=== PATIENT | male | born 1970 | race Caucasian/White ===

== ENCOUNTER → 2016-08-18 | Outpatient (CLI) | payer MEDICAID ==
[~2016-08-18] MED LIST: AMOXICILLIN 50500 MG PO; BACTRIM DS 8001 TA1 PO; CIPRO 500MG TA500 MG PO; DARVOCET-N 1001 EACH PO; FLEXERIL10 MG PO; FLONASE 50 MCG16 GM; GABAPENTIN800 MG PO; GLIPIZIDE 5MG TA5 MG PO; KEFLEX 500MG.500 MG PO; LEVOTHYROXINE0.15 M1 PO; LISINOPRIL 10MG10 MG PO; MEDROL 4MG. DOSE4 MG PO; METFOMIN HYDRO850 MG PO; METFORMIN HCL1000 MG PO; NAPROSYN500 M1 PO; NOMEDS *; NORCO 325 MG-51 TAB PO; PRAVACHOL 40MG40 MG PO; STERAPRED DS10 MG PO; ULTRAM 50 MG TA50 MG PO; ULTRAM50 MG PO; VICODIN 5/500 T1 TAB PO; [UNRECOGNIZED DRUG - REMARK]; [UNRECOGNIZED DRUG - REMARK] PO
[2016-08-18 21:16] LABS: BUN 8 mg/dL (7-18)
[2016-08-18 21:20] LABS: GFR (ESTIMATED) 104 ML/MIN (>60)
== END ==
LOC: LAB 17:59
PROVIDERS: Emergency Medicine
DX: E11.9 Type 2 diabetes mellitus without complications (principal); E03.9 Hypothyroidism, unspecified; I10 Essential (primary) hypertension

== ENCOUNTER 2016-11-25 13:00 | Emergency (ER) | payer MEDICAID ==
[~2016-11-25] VITALS: Ht 170.2 cm; Wt 83.9 kg
[~2016-11-25 13:00] MED LIST changes: +HUMULIN 70100 UNITS/ SC; +LOVASTATIN10 MG PO; +SUBOXONE 8 MG-21 FIL SL
[2016-11-25 13:34] VITALS: BP 123/56
--- OUTSIDE RECORDS SUMMARY | 2016-11-25 13:35 | External Medical Summary Rpt ---
Author Author , MAXIMUS STROUD Address Unknown Phone [email or web address] Care Team Providers Care Escrow Representative Name Role Phone [employer] Unavailable Unavailable INC, [employer] ARMS DON, ARMS DON Unavailable Unavailable CELESTIN ALL, CELESTIN ALL Unavailable Unavailable [facility] Unavailable Unavailable [facility], [facility] CASE, CASE Unavailable Unavailable CHAVDA PAUL, CHAVDA Unavailable Unavailable PAUL [facility], Unavailable Unavailable [facility] Unavailable Unavailable LAB, [facility] UPTON TIESHA, UPTON TIESHA Unavailable Unavailable ALESHIA PAT, ALESHIA PAT Unavailable Unavailable ORIANA MELVIN, Unavailable Unavailable ORIANA MELVIN ORIANA MELVIN, Unavailable Unavailable ORIANA MELVIN MARIAH CORONEL PA-C Unavailable Unavailable NEOMARIAH PA-C NEO [facility] Unavailable [place]available [place], [facility] FRYMAN EUG, FRYMAN Unavailable Unavailable EUG [place], [place] Unavailable Unavailable [place] SEJAL, [place] Unavailable Unavailable SEJAL [place] SEJAL, [place] Unavailable Unavailable SEJAL [place], FELICITAS S, Unavailable Unavailable [place], FELICITAS S [facility] Unavailable Unavailable [facility] FAROOQ RHO, FAROOQ Unavailable Unavailable RHO [facility] Unavailable Unavailable INC, [facility] [place] Unavailable Unavailable [facility], [facility], Unavailable Unavailable [facility] EDMONDSON TRA, EDMONDSON TRA Unavailable Unavailable [facility] Unavailable Unavailable GROUP PS, [facility] Unavailable Unavailable [facility], [facility], [facility]available Unavailable [facility] CHAPMAN JACQUELINE, CHAPMAN Unavailable Unavailable JACQUELINE YOEL ANT, YOEL ANT Unavailable Unavailable [facility] Unavailable Unavailable SERVICES, [facility] EFE SANGEETHA, EFE Unavailable Unavailable SANGEETHA [facility] Un[facility] TIESHA UPTON MD Unavailable Unavailable CONSULTING SRV, TIESHA UPTON MD CONSULTING [facility], Unavailable [facility]available [facility], [facility] PETTEY JAM, PETTEY Unavailable Unavailable GRACIE NIXON, HECTOR Unavailable Unavailable TIFFANI Paula, BOBBI Unavailable Unavailable [id number], Unavailable Unavailable [id number] SOKAN BAB, SOKAN BAB Unavailable Unavailable [facility] Unavailable Unavailable EM[facility]Y [facility], [facility] PANDYA BRANDY, PANDYA Unavailable Unavailable BRANDY Purpose Continuity of Care Document - 12-17-2008 through 2016 Problems Code Diagnosis DOS Provider Status [id number] UNS VIRAL 10-27-2016 [facility] HEPATITIS B OLOGY AND WITHOUT HEPATOL HEPATIC COMA K5900 CONSTIPATIO 10-27-2016 [facility] N OLOGY AND UNSPECIFIED HEPATOL R109 UNSPECIFIED 10-27-2016 [facility] ABDOMINAL OLOGY AND PAIN HEPATOL R748 ABNORMAL 10-27-2016 [facility] LEVELS OF OLOGY AND OTHER SERUM HEPATOL ENZYMES R10.9 UNSPECIFIED 10-26-2016 ABDOMINAL PAIN B19.10 UNSPECIFIED 10-20-2016 VIRAL HEPATITIS B WITHOUT HEPATIC COMA Z11.4 ENCOUNTER 10-20-2016 FOR SCREENING FOR HUMAN IMMUNODEFIC IENCY VIRUS [HIV] B179 ACUTE VIRAL 10-03-2016 [facility] UNSPECIFIED INC E119 TYPE 2 10-03-2016 [facility] DIABETES [facility] MELLITUS INC WITHOUT COMPLICATIO NS Z720 TOBACCO USE 10-03-2016 [facility] INC Z794 CHCF 10-03-2016 [facility] CURRENT USE [facility] OF INSULIN INC E039 HYPOTHYROID 08-25-2016 [facility] ISM PHYSICIANS UNSPECIFIED GROUP I10 ESSENTIAL 08-18-2016 [facility] PRIMARY PHYSICIANS HYPERTENSIO GROUP N X70078 PAIN IN 04-06-2016 [facility] RIGHT PHYSICIANS SHOULDER GROUP Q83897 OTHER 03-28-2016 [facility]NOVITIS [facility] AND INC TENOSYNOVIT IS RIGHT SHOULDER N77368 UNS ROT 03-28-2016 [facility], TEAR/RUPT PLLC RT SHLDR NOT SPEC TRAUMAT M545 LOW BACK 10-09-2015 [facility] PAIN PHYSICIANS GROUP [id number] STRAIN 10-09-2015 [facility] MUSCLE & PHYSICIANS TENDON UNS GROUP WALL THORAX INIT ENC J309 ALLERGIC 09-05-2015 [facility] RHINITIS PHYSICIANS UNSPECIFIED GROUP J40 BRONCHITIS 09-05-2015 [facility] NOT PHYSICIANS SPECIFIED GROUP ACUTE OR CHRONIC J329 CHRONIC 07-22-2015 [facility] SINUSITIS PHYSICIANS UNSPECIFIED GROUP R5383 OTHER 07-12-2015 [facility] INC 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 Z9889 OTHER 02-22-2015 [place] SPECIFIED [facility] 32086 OTHER ACUTE 01-30-2015 [facility] POSTOPERATI GROUP PS VE PAIN 48575 OSTEOARTHRO 01-30-2015 [facility] S UNSPEC [facility] WHETHER GEN/LOC SHLDR REGION 40647 UNSPECIFIED 01-30-2015 [facility] ARTHROPATHY SHOULDER REGION 07277 PAIN IN 01-30-2015 [facility] JOINT, [facility] SHOULDER REGION 98878 PARTIAL 01-30-2015 [facility] TEAR OF ANESTHESIA ROTATOR GROUP PS CUFF 7262 OTHER 01-30-2015 [facility] AFFECTIONS [facility] OF SHOULDER REGION NEC 12969 COMPLETE 01-30-2015 [facility] RUPTURE OF [facility] ROTATOR CUFF 4290 UNSPECIFIED 01-22-2015 TIESHA UPTON MD MYOCARDITIS CONSULTING SRV 43195 SHORTNESS 01-18-2015 [facility] [place] OF [facility]ATH [facility] V571 OTHER 01-14-2015 [facility] THERAPY INC 29311 DIAB W/O 12-11-2014 [facility] COMP TYPE PHYSICIANS II/UNS NOT GROUP STATED UNCNTRL 3559 MONONEURITI 12-11-2014 [facility] S OF PHYSICIANS UNSPECIFIED GROUP SITE 4556 UNSPEC 12-11-2014 [facility] HEMORRHOIDS PHYSICIANS WITHOUT GROUP [place]ICATIO N 81486 DISPLCMT 12-11-2014 [facility] LUMBAR PHYSICIANS INTERVERT GROUP DISC W/O MYELOPATHY 7242 LUMBAGO 11-12-2014 [facility] 7231 CERVICALGIA 10-24-2014 [facility] INC 35374 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[facility] OF ORGANIC PHYSICIANS ORIGIN GROUP 7234 BRACHIAL 09-13-2014 [facility] NEURITIS OR PHYSICIANS GROUP RADICULITIS NOS 7244 THORACIC/LEEANNE 09-13-2014 [facility] MBOSACRAL PHYSICIANS NEURITIS/RA GROUP DICULITIS UNSPEC 7840 HEADACHE 09-13-2014 [facility] PHYSICIANS GROUP 4730 CHRONIC 08-23-2014 [facility] MAXILLARY PHYSICIANS SINUSITIS GROUP 4732 CHRONIC 08-23-2014 [facility] ETHMOIDAL PHYSICIANS SINUSITIS GROUP 4779 ALLERGIC 08-23-2014 [facility] RHINITIS PHYSICIANS CAUSE GROUP UNSPECIFIED 2449 UNSPECIFIED 08-17-2014 [facility]YPOTHYRO[facility] ISM 4739 UNSPECIFIED 07-17-2014 [facility] SINUSITIS PHYSICIANS GROUP 2538 OTH 07-11-2014 [facility] DISORDERS & INC SYNDROMES 4731 CHRONIC 07-11-2014 [facility] SINUSITIS IMAGING ASS 31476 OTHER 06-29-2014 [facility] 6823 CELLULITIS 02-18-2014 [facility] OF UPPER PHYS ARM AND FOREARM 2724 OTHER AND 02-09-2014 [facility] UNSPECIFIED PHYSICIANS GROUP HYPERLIPIDE HOWARD 4019 UNSPECIFIED 02-09-2014 [facility]SSENTIAL [facility] HYPERTENSIO INC N 3829 UNSPECIFIED 10-13-2013 [place] SEJAL OTITIS MEDIA 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 [place] LUMBAR/LUMB MELVIN OSACRAL INTERVERTEB RAL DISC 36987 DECREASED 07-20-2013 [facility] LIBIDO PHYSICIANS GROUP 30319 OTHER 07-19-2013 [facility] DISEASES OF MEDICAL LUNG NOT IMAGING ASS ELSEWHERE CLASSIFIED 15991 UNSPECIFIED 12-30-2009 [facility] EPIDIDYMITI S 02924 OT ORCHIT 12-30-2009 [facility] EPIDIDYMIT[facility] EPIDIDYMO-O INC RCHIT W/O ABSC 6089 UNSPECIFIED 12-30-2009 [facility] DISORDER MEDICAL OF MALE IMAGING ASS GENITAL ORGANS 5206 DISTURBANCE 12-19-2008 [facility] S IN TOOTH [facility] ERUPTION INC K75.9 INFLAMMATOR Y LIVER DISEASE, UNSPECIFIED L02.91 CUTANEOUS ABSCESS, UNSPECIFIED M75.81 OTHER SHOULDER LESIONS, RIGHT SHOULDER R17 UNSPECIFIED JAUNDICE R53.1 WEAKNESS Allergies, Adverse Reactions, Alerts Type Drug Allergy Adverse Reaction to Substance Substance Reaction Severity Codeine VOMITING Mild Clinical Alert Notifications Alert Diabetes: no eye exam in the last 365 days Diabetes: no influenza vaccine in the last 365 days Diabetes: no lipid panel in the last 365 days Diabetes: no urine protein screening in the last 365 days Medications Na ND Rx Da Fi Fi Am Da Di Ph RX Ph St me C No te ll ll ou ys ag ar # ys at rm s nt no ma ic us Or Da si cy ia de te s n re d GA 68 06 07 90 30 00 HO Ac BA 00 -2 -2 .0 00 ME ti PE 10 2- 1- 00 06 TO ve NT 00 20 20 08 WN IN 70 17 17 94 3 94 PH 80 AR 0 MA MG CY TA OF BL ET CY NT HI AN A PO 62 06 07 52 30 00 HO Ac LY 17 -2 -1 7. 00 ME ti ET 50 0- 4- 00 06 TO ve HY 44 20 20 0 08 WN LE 23 17 17 93 NE 1 06 PH AR GL MA YC CY OL OF 33 50 CY NT PO HI WD AN A LO 68 06 07 30 30 00 HO Ac VA 00 -2 -1 .[address] 10 1- 4- 00 06 TO ve AT 21 20 20 08 WN IN 30 17 17 53 0 21 PH 10 AR MA MG CY TA OF BL ET CY NT HI AN A LE 00 06 07 30 30 00 HO Ac VO 52 -2 -1 .0 00 ME ti TH 71 1- 4- 00 06 TO ve YR 34 20 20 08 WN OX 50 17 17 57 IN 1 54 PH E AR 10 MA 0 CY MC G OF TA BL CY ET NT HI AN A LI 68 06 06 30 30 00 HO Ac SI 00 -0 -3 .0 00 ME ti NO 10 2- 0- 00 06 TO ve NV 26 20 20 08 WN IL 80 17 17 43 8 92 PH 10 AR MA MG CY TA OF BL ET CY NT HI AN A ME 68 05 06 60 30 00 HO Ac TF 38 -2 -1 .0 00 ME ti OR 20 2- 6- 00 06 TO ve PR 76 20 20 07 WN N 00 17 17 22 HC 5 98 PH L AR 1, MA 00 CY 0 MG OF TA CY BL NT ET HI AN A LO 68 05 06 30 30 00 HO Ac VA 00 -2 -1 .[address] 10 2- 6- 00 06 TO ve AT 21 20 20 08 WN IN 30 17 17 53 0 21 PH 10 AR MA MG CY TA OF BL ET CY NT HI AN A LE 00 05 06 30 30 00 HO Ac VO 52 -2 -1 .0 00 ME ti TH 71 2- 6- 00 06 TO ve YR 34 20 20 08 WN OX 50 17 17 57 IN 1 54 PH E AR 10 MA 0 CY MC G OF TA BL CY ET NT HI AN A GA 68 05 06 90 30 00 HO Ac BA 00 -1 -1 .0 00 ME ti PE 10 9- 6- 00 06 TO ve NT 00 20 20 08 WN IN 70 17 17 72 3 83 PH 80 AR 0 MA MG CY TA OF BL ET CY NT HI AN A EA 08 05 06 10 30 00 HO Ac SY 49 -2 -1 0. 00 ME ti 63 4- 6- 00 06 TO ve TO 15 20 20 0 08 WN UC 60 17 17 76 H 1 89 PH IN AR ARELLANO MA LI CY N SY OF R 0. CY 5 NT ML HI AN A AZ 68 05 06 6. 5 00 HO Ac IT 18 -2 -1 00 00 ME ti HR 00 4- 6- 0 06 TO ve OM 16 20 20 08 WN YC 01 17 17 76 IN 3 83 PH AR 25 MA 0 CY MG OF TA BL CY ET NT HI AN A HU 00 05 06 10 30 00 HO Ac MU 00 -2 -1 .0 00 ME ti LI 28 4- 6- 00 06 TO ve N 71 20 20 08 WN 70 50 17 17 76 -3 1 87 PH 0 AR MA AL CY OF CY NT HI AN A GL 60 05 06 60 30 00 HO Ac IP 50 -0 -0 .0 00 ME ti IZ 50 5- 2- 00 06 TO ve ID 14 20 20 08 WN E 10 17 17 57 5 0 56 PH MG AR MA TA CY BL ET OF CY NT HI AN A TR 00 05 06 30 30 00 HO Ac AD 59 -0 -0 .0 00 ME ti JE 70 5- 2- 00 06 TO ve NT 14 20 20 08 WN A 03 17 17 63 5 0 10 PH MG AR MA TA CY BL ET OF CY NT HI AN A LE 00 05 06 30 30 00 HO Ac VO 52 -0 -0 .0 00 ME ti TH 71 4- 2- 00 06 TO ve YR 34 20 20 08 WN OX 90 17 17 27 IN 1 91 PH E AR 15 MA 0 CY MC G OF TA BL CY ET NT HI AN A LI 68 04 05 30 30 00 HO Ac SI 00 -2 -2 .0 00 ME ti NO 10 8- 6- 00 06 TO ve NV 26 20 20 08 WN IL 80 17 17 43 8 92 PH 10 AR MA MG CY TA OF BL ET CY NT HI AN A LE 00 04 05 30 30 00 HO Ac VO 52 -2 -1 .0 00 ME ti TH 71 5- 9- 00 06 TO ve YR 34 20 20 08 WN OX 50 17 17 57 IN 1 54 PH E AR 10 MA 0 CY MC G OF TA BL CY ET NT HI AN A ME 68 04 05 60 30 00 HO Ac TF 38 -2 -1 .0 00 ME ti OR 20 4- 9- 00 06 TO ve PR 76 20 20 07 WN N 00 17 17 22 HC 5 98 PH L AR 1, MA 00 CY 0 MG OF TA CY BL NT ET HI AN A GA 68 04 05 90 30 00 HO Ac BA 00 -2 -1 .0 00 ME ti PE 10 1- 9- 00 06 TO ve NT 00 20 20 08 WN IN 70 17 17 53 3 73 PH 80 AR 0 MA MG CY TA OF BL ET CY NT HI AN A GL 60 04 05 30 30 00 HO Ac IP 50 -1 -1 .0 00 ME ti IZ 50 8- 2- 00 06 TO ve ID 14 20 20 08 WN E 10 17 17 53 5 0 20 PH MG AR MA TA CY BL ET OF CY NT HI AN A LO 68 04 05 30 30 00 HO Ac VA 00 -1 -1 .[address] 10 8- 2- 00 06 TO ve AT 21 20 20 08 WN IN 30 17 17 53 0 21 PH 10 AR MA MG CY TA OF BL ET CY NT HI AN A FR 99 04 05 50 30 00 HO Ac EE 07 -1 -1 .[address] 30 8- 2- 00 06 TO ve YL 70 20 20 08 WN E 82 17 17 53 LI 2 22 PH TE AR MA TE CY ST OF ST RI CY P NT HI AN A FR 99 04 05 10 30 00 HO Ac EE 07 -1 -1 0. [address] 30 8- 2- 00 06 TO ve YL 13 20 20 0 08 WN E 00 17 17 53 28 1 23 PH G AR LA MA NC CY ET S OF CY NT HI AN A FR 99 04 05 1. 1 00 HO Ac EE 07 -1 -1 [address] 30 8- 2- 0 06 TO ve YL 70 20 20 08 WN E 80 17 17 53 LI 5 24 PH TE AR MA ME CY TE R OF CY NT HI AN A LE 00 04 05 30 30 00 HO Ac VO 52 -0 -0 .0 00 ME ti TH 71 7- 5- 00 06 TO ve YR 34 20 20 08 WN OX 90 17 17 27 IN 1 91 PH E AR 15 MA 0 CY MC G OF TA BL CY ET NT HI AN A GA 68 03 04 90 30 00 HO Ac BA 00 -2 -2 .0 00 ME ti PE 10 4- 8- 00 06 TO ve NT 00 20 20 07 WN IN 70 17 17 86 3 36 PH 80 AR 0 MA MG CY TA OF BL ET CY NT HI AN A LI 68 04 04 30 30 00 HO Ac SI 00 -0 -2 .0 00 ME ti NO 10 3- 8- 00 06 TO ve NV 26 20 20 08 WN IL 80 17 17 43 8 92 PH 10 AR MA MG CY TA OF BL ET CY NT HI AN A LE 03 03 30 30 00 HO Ac VO 52 -0 -3 .0 00 ME ti TH 71 7- 1- 00 06 TO ve YR 34 20 20 08 WN OX 90 17 17 27 IN 1 91 PH E AR 15 MA 0 CY MC G OF TA BL CY ET NT HI AN A ME 68 03 03 60 30 00 HO Ac TF 38 -0 -3 .0 00 ME ti OR 20 7- 1- 06 TO ve PR 76 20 20 07 WN N 00 17 17 22 HC 5 98 PH L AR 1, MA 00 CY 0 MG OF TA CY BL NT ET HI AN A GA 90 30 00 HO Ac BA 00 -2 -2 .0 00 ME ti PE 10 4- 4- 06 TO ve NT 00 20 20 07 WN IN 70 17 17 86 3 36 PH 80 AR 0 MA MG CY TA OF BL ET CY NT HI AN A LI 02 30 30 00 HO Ac SI 18 -2 -2 .0 00 ME ti NO 00 4- 4- 06 TO ve NV 51 20 20 08 WN IL 40 17 17 21 3 35 PH 10 AR MA MG CY TA OF BL ET CY NT HI AN A LI 02 30 30 00 HO Ac SI 18 -2 -2 .0 00 ME ti NO 00 7- 4- 06 TO ve NV 51 20 20 07 WN IL 40 17 17 54 3 53 PH 10 AR MA MG CY TA OF BL ET CY NT HI AN A LE 02 30 30 00 HO Ac VO 52 -2 -2 .0 00 ME ti TH 71 7- 4- 06 TO ve YR 34 20 20 08 WN OX 90 17 17 03 IN 1 52 PH E AR 15 MA 0 CY MC G OF TA BL CY ET NT HI AN A GA 02 90 30 00 HO Ac BA 00 -2 -2 .0 00 ME ti PE 10 7- 4- 06 TO ve NT 00 20 20 07 WN IN 70 17 17 86 3 36 PH 80 AR 0 MA MG CY TA OF BL ET CY NT HI AN A GA 68 12 02 90 30 00 HO Ac BA 00 -3 -0 .0 00 ME ti PE 10 0- 3- 00 06 TO ve NT 00 20 20 07 WN IN 70 16 17 86 3 20 PH 80 AR 0 MA MG CY TA OF BL ET CY NT HI AN A LI 68 12 01 30 30 00 HO Ac SI 18 -1 -2 .0 00 ME ti NO 00 9- 0- 00 06 TO ve NV 51 20 20 07 WN IL 40 16 17 54 3 53 PH 10 AR MA MG CY TA OF BL ET CY NT HI AN A ME 68 12 01 60 30 00 HO Ac TF 38 -1 -2 .0 00 ME ti OR 20 9- 0- 00 06 TO ve PR 76 20 20 07 WN N 00 16 17 22 HC 5 98 PH L AR 1, MA 00 CY 0 MG OF TA CY BL NT ET HI AN A LE 00 12 01 30 30 00 HO Ac VO 52 -1 -2 .0 00 ME ti TH 71 9- 0- 00 06 TO ve YR 34 20 20 07 WN OX 90 16 17 22 IN 1 99 PH E AR 15 MA 0 CY MC G OF TA BL CY ET NT HI AN A HY 00 12 01 [address] 60 -0 -0 .0 00 ME ti OC 33 5- 9- 00 02 TO ve OD 89 20 20 01 WN ON 03 16 17 21 -A 2 94 PH CE AR TA MA PR CY NO PH OF EN CY 5- NT 32 HI 5 AN A LI 60 10 11 00 60 1 EA 14 AR Ac ND 43 -1 -[address] 73 NO ti AN 20 7- 5- 00 SI 57 LD ve E 83 20 20 DE 1% 36 09 09 RI 0 PH CH LO AR AR TI MA D ON CY W OF CY NT HI AN A 00 09 10 00 12 3 EA 14 RU Ac 59 -2 -[address] 42 SH ti 10 5- 8- 00 SI 55 ve 34 20 20 DE NE 90 09 09 IL 1 PH C AR MA CY OF CY NT HI AN A 00 08 08 00 12 3 EA 13 RU Ac 59 -1 -[address] 91 SH ti 10 9- 7- 00 SI 37 ve 34 20 20 DE NE 90 09 09 IL 1 PH C AR MA CY OF CY NT HI AN A LO 00 08 08 00 90 30 RI 79 AR Ac RA 22 -1 -2 .0 TE 54 NO ti ZE 82 3- 7- 00 43 LD ve PA 05 20 20 AI M 95 09 09 D RI 1 0 PH CH MG AR AR M D TA #3 W BL 93 ET 8 Vital Signs 02-27-2013 10:56 Name Value Interpretat Reference Comment ion Range Body 97.6 [degF] Temperature BP 81 mm[Hg] Diastolic BP Systolic 142 mm[Hg] Heart 86 /min Rate/Pulse O2% 95 % Respiratory 20 /min Rate 02-27-2013 09:42 Name Value Interpretat Reference Comment ion Range Body 98.4 [degF] Temperature 02-27-2013 08:58 Name Value Interpretat Reference Comment ion Range BP 67 mm[Hg] Diastolic BP Systolic 108 mm[Hg] Heart 92 /min Rate/Pulse O2% 100 % Respiratory 20 /min Rate Results Labs Lab Lab Date Result Refere Interp Status Commen Order Detail nces retati t Range on Urinalysis dipstick W Reflex Microscopic panel in Urine (10-01-2016 19:55) Bacteri 1+ O complet a 017 ed [Presen 19:55 ce] in Urine sedimen t by Light microsc opy Epithel OCC OCC complet ial 017 ed cells.s 19:55 quamous [Presen ce] in Urine sedimen t by Microsc opy high power field Urinalysis dipstick W Reflex Microscopic panel in Urine (10-01-2016 19:55) Appeara CLEAR CLEAR complet nce of 017 ed Urine 19:55 Bilirub 3+ NEG Abnorma complet in 017 l ed [Presen 19:55 ce] in Urine by Test strip Erythro TRACE-I NEG complet cytes 017 NTACT ed [Presen 19:55 ce] in Urine Color KEIKO YELLOW complet of 017 ed Urine 19:55 Ketones NEGATIV NEG complet 017 E ed [Presen 19:55 ce] in Urine by Automat ed test strip Mucus NEGATIV NEG complet [Presen 017 E ed ce] in 19:55 Urine sedimen t by Light microsc opy Nitrite NEGATIV NEG complet 017 E ed [Presen 19:55 ce] in Urine by Test strip Urobili >=8.0 NEG Abnorma complet nogen 017 l ed [Presen 19:55 ce] in Urine by Test strip Drugs identified in Urine by Screen method (10-01-2016 19:55) Ampheta NEGATIV <1000 complet mine 017 E ed [Presen 19:55 ce] in Urine by Screen method 11-Hydr NEGATIV <50 complet oxy 017 E ed delta-9 19:55 tetrahy drocann abinol [Presen ce] in Unspeci fied specime n Procedures Procedure DOS Code Location Performer Comment HEPATITIS 97083 [facility] ANTIBODY INC INC HAAB BLOOD 75595 [facility] COUNT [facility] COMPLETE INC INC AUTO&AUTO DIFRNTL WBC HEPATITIS 63281 [facility] C [facility] ANTIBODY INC INC HEPATITIS 93198 [facility] B CORE [facility] [place] [address] [facility] HEPATITIS [facility] B INC INC SURFACE ANTIGEN COMPREHEN 36064 [facility] SIVE [facility] METABOLIC INC INC PANEL UNCLASSIF J3490 [facility] IED DRUGS 7 [place] [address] [facility] INFUSION 7 [facility] THERAPY/P INC INC ROPHYLAXI S /DX 1ST TO 1 HR INJECTION J0696 [facility] [place] 7 PHYSICIAN CEFTRIAXO S GROUP NE SODIUM PER 250 MG THERAPEUT 05592 [facility] [place] IC 7 PHYSICIAN PROPHYLAC S GROUP TIC/DX INJECTION SUBQ/IM HEMOGLOBI 78657 [facility] N [facility] GLYCOSYLA INC INC GRACE A1C HEMOGLOBI 09703 [facility] N 7 [facility] [place]YCOS[place] [address] [facility] THYROID 7 [facility] STIMULAT[place] [address] [facility] FREE 7 [facility] THYROXINE INC INC BASIC 93085 [facility] METABOLIC 7 [facility] PANEL INC INC CALCIUM TOTAL DRUG TST G0477 [facility] PRESUMP;C 6 [facility] PBL BEING INC INC READ DC OPT OBV ONLY DRUG TEST G0481 [facility] DEFINITV [address] [facility] [address] [address] [address] ID INC INC METH P DAY 8-14 DRUG CL SHOULDER L3650 [facility] 6 TECHNOLOG TECHNOLOG FIG 8 IES INC IES INC ABDUCT RESTRAINE R PREFAB RADEX 51635 [facility] [place] SHOULDER 6 MEDICAL MELVIN COMPLETE IMAGING MINIMUM 2 ASS VIEWS THERAPEUT 97491 [facility] IC 6 [facility] PROPHYLAC INC INC TIC/DX INJECTION SUBQ/IM THERAPEUT 24438 [facility] LEMUS IC 6 PHYSICIAN STONE PROPHYLAC S GROUP PA-C NEO TIC/DX INJECTION SUBQ/IM INJECTION J0696 [facility] STONE CEFTRIAXO S GROUP PA-C NEO NE SODIUM PER 250 MG [facility]JECTION J1040 [facility] PHYSICIAN STONE METHYLPRE S GROUP PA-C NEO DNISOLONE ACETATE 80 MG INJECTION J1040 [facility] 6 PHYSICIAN SEJAL METHYLPRE S GROUP DNISOLONE ACETATE 80 MG INJECTION J0696 [facility] 6 PHYSICIAN SEJAL CEFTRIAXO S GROUP NE SODIUM PER 250 MG THERAPEUT 37361 [facility] IC 6 PHYSICIAN SEJAL PROPHYLAC S GROUP TIC/DX INJECTION SUBQ/[place] [address] [facility] THYROXINE 6 [facility] TOTAL INC INC CREATINE 39426 [facility] KINASE 6 [facility] [place] [address] [facility] THYROID 6 [facility] STIMULATI INC INC NG HORMONE TSH COLLECTIO 57536 [facility] N VENOUS 6 [facility] BLOOD INC INC VENIPUNCT URE COMPREHEN 86178 [facility] SIVE 6 [facility] METABOLIC INC INC PANEL HEMOGLOBI 58237 [facility] N 6 [facility] GLYCOSYLA INC INC GRACE A1C BLOOD 59406 [facility] COUNT 6 [facility] COMPLETE INC INC AUTO&[place] [address] [facility] TROPONIN 6 [facility] QUANTITAT INC INC EVELIN CREATINE 51334 [facility] KINASE MB 6 [facility] FRACTION INC INC ONLY INJECTION J0696 [facility] [place] 5 PHYSICIAN SEJAL CEFTRIAXO S GROUP NE SODIUM PER 250 MG INJECTION J1040 [facility] [place] 5 PHYSICIAN SEJAL METHYLPRE S GROUP DNISOLONE ACETATE 80 MG THERAPEUT 60853 [facility] IC 5 PHYSICIAN SEJAL PROPHYLAC S GROUP TIC/DX INJECTION SUBQ/IM RADEX 84608 [facility] SHOULDER 5 [facility] MINIMUM 2 VIEWS ARTHROSCO 59408 [place] ARMS DON PY 5 [facility] SHOULDER W/CORACOA CRM LIGMNT RELEASE CLAVICULE 59087 [place] ARMS DON CTOMY 5 [facility] PARTIAL ANES 89997 [place] YOEL ANT ARTHRS 5 ANESTHESI HUMERAL A GROUP H/N PS STRNCLAV & SHOULDER NOS ARTHROSCO 99289 [place] ARMS DON PY 5 [facility] SHOULDER SURG DEBRIDEME NT EXTENSIVE SINGLE 94144 [place] YOEL ANT NERVE 5 ANESTHESI BLOCK A GROUP [place] [address] [facility] PAT SURG 5 [facility] PATHOLOGY GROSS&SEJAL ROSCOPIC EXAM DECALCIFI 36212 [facility] PAT CATION 5 [facility] PROCEDURE ECG 19529 TIESHA UPTON UPTON TIESHA ROUTINE 5 MD ECG CONSULTIN W/LEAST G SRV 12 LDS I&R ONLY RADIOLOGI 52539 [facility] [place] FAR[place] C EXAM 5 RADIOLOGY RHO CHEST 2 VIEWS FRONTAL&L ATERAL OCCUPATIO 75951 TYLER TYLER NAL 5 [facility] THERAPY INC INC EVALUATIO N MRI ANY 93633 BOBOO ALTAMIRANO JT UPPER 5 [facility] W/O CONTRAST MATRL RADEX 01523 [facility] [place] FAR[place] SHOULDER 5 RADIOLOGY RHO COMPLETE MINIMUM 2 VIEWS INJECTION J1885 [facility] [place] 5 PHYSICIAN SEJAL KETOROLAC S GROUP TROMETHAM INE PER 15 MG INJECTION J1100 [facility] [place] 5 PHYSICIAN SEJAL DEXAMETHO S GROUP SONE SODIUM PHOSPHATE 1 MG THERAPEUT 88791 [facility] [place] IC 5 PHYSICIAN SEJAL PROPHYLAC S GROUP TIC/DX INJECTION SUBQ/IM THERAPEUT 19717 [facility] JONATAN IC 5 [facility] TIC/DX INJECTION SUBQ/IM INJECTION J1885 [facility] YMAN 5 [facility] TROMETHAM INE PER 15 MG INJ J0702 [facility] PETTEFidelia BETAMETHA 5 PHYSICIAN GRACIE SONE S GROUP ACETATE & PHOSPHATE 3 MG ARTHROCEN 74766 [facility] PETTEFidelia TESIS 5 PHYSICIAN JAM ASPIR&/IN S GROUP J MAJOR JT/BURSA W/O US RADEX 98119 [place] CELESTIN ALL SHOULDER 5 MEDICAL COMPLETE IMAGING MINIMUM 2 ASS VIEWS COLLECTIO 92424 [facility] SCOTT N VENOUS 5 [facility] [place] [address] [facility] SCOTT THYROID 5 [facility] STIMULATI INC INC NG HORMONE TSH THERAPEUT 80856 [facility] [place] IC 5 PHYSICIAN SEJAL PROPHYLAC S GROUP TIC/DX INJECTION SUBQ/IM INJECTION [id number] [facility] 5 PHYSICIAN SEJAL METHYLPRE S GROUP DNISOLONE ACETATE 80 MG INJECTION [id number] [facility] 5 PHYSICIAN SEJAL CEFTRIAXO S GROUP NE SODIUM PER 250 MG INJECTION A9576 [facility] GADOTERID INC INC OL PROHANCE MULTIPACK PER ML MRI BRAIN 52577 [place] BRAIN 5 MEDICAL MELVIN STEM W/O IMAGING W/CONTRAS ASS T MATERIAL BASIC 89054 [facility] METABOLIC 5 [facility] PANEL INC INC CALCIUM TOTAL CORTISOL 58219 [facility] TOTAL 5 [place] [address] [facility] THYROID 5 [facility] STIMULATI INC INC NG HORMONE TSH COLLECTIO 86246 [facility] N VENOUS 5 [facility] [place] [address] [facility] FREE 5 [facility] [place] [address] [facility] PROLACTIN 5 [facility] INC INC GAMMAGLOB 30540 [facility] ULIN 5 [facility] IMMUNOGLO INC INC BULIN SUBCLASSE S INCISION 61804 [facility] B[facility] & 4 [facility] EMERGENCY ABSCESS PHYS COMPLICAT ED/[place] [address] [facility] CHAVDA TESTOSTER 4 [facility] TOTAL INC BLOOD 09896 [facility] PANDYA COUNT 4 [facility] BRANDY COMPLETE INC AUTO&AUTO DIFRNTL WBC HEMOGLOBI 86630 [facility] N 4 [facility] GLYCOSYLA [place] [address] [facility] THYROID 4 [facility] STIMULATI INC INC NG HORMONE TSH CYANOCOBA 11196 [facility] PANDYA BETSY 4 [facility] BRANDY VITAMIN INC B-12 [place] [address] [facility]ER THYROXINE 4 [facility] TOTAL INC INC COMPREHEN 33825 [facility] SIVE 4 [facility] METABOLIC INC INC PANEL THERAPEUT 54459 [facility] IC 4 PHYSICIAN SEJAL PROPHYLAC S GROUP TIC/DX INJECTION SUBQ/[place] [address] [facility] MAGNESIUM 4 [facility] INC INC HEPATITIS 14727 [facility] B CORE 4 [facility] ANTIBODY INC INC HBCAB TOTAL HEPATITIS 26349 [facility] B SURF 4 [facility] [place] [address] [facility] HEPATITIS 4 [facility] [place] [address] [facility] THYROXINE 4 [facility] [place] [address] [facility] VITAMIN A 4 [facility] INC INC HEPATITIS 08720 [facility] A 4 [facility] ANTIBODY INC INC HAAB COMPREHEN 81217 [facility] SIVE 4 [facility] [place] [address] [facility] THYROID 4 [facility] STIMULATI INC INC NG HORMONE TSH HEMOGLOBI 30806 [facility] N 4 [facility] GLYCOSYLA INC INC GRACE A1C URNLS DIP 48483 [facility] STICK/TAB INC INC LET REAGENT AUTO MICROSCOP Y HEPATITIS 29968 [facility] C 4 [facility] ANTIBODY INC INC BLOOD 29655 [facility] COUNT 4 [facility] COMPLETE INC INC AUTO&AUTO DIFRNTL WBC BLOOD 21495 [facility] COUNT 4 [facility] COMPLETE INC INC AUTO&AUTO DIFRNTL WBC COMPREHEN 59405 [facility] SIVE 4 [facility] METABOLIC INC INC PANEL 3D 88980 [facility]OTT RENDERING 4 [facility] W/INTERP INC INC & POSTPROCE [place]PERVIS[place] ON 3D [address]94 [place] RENDERING 4 MELVIN MELVIN W/INTERP& POSTPROC DIFF WORK STATION THERAPEUT 10541 [facility] IC 4 PHYSICIAN SEJAL PROPHYLAC S GROUP TIC/DX INJECTION SUBQ/IM INJECTION J3420 [facility] [place] VIT B-12 4 PHYSICIAN SEJAL S GROUP CYANOCOBA BETSY TO 1000 MCG RADIOLOGI 79722 [facility] Barney EXAM 4 [facility] CHEST 2 INC INC [place] FR[place] [address] [place] EFE SCROTUM & 0 MEDICAL SANGEETHA CONTENTS IMAGING ASS BASIC 10375 [facility] METABOLIC 0 [facility] PANEL INC INC CALCIUM TOTAL BLOOD 00683 [facility] COUNT 0 [facility] COMPLETE INC INC AUTO&AUTO DIFRNTL WBC URNLS DIP 50238 [facility] STICK/TAB INC [place] [address] [facility] INFUSION 9 [facility] THERAPY/P INC INC ROPHYLAXI S /DX 1ST TO 1 HR LIPID 07908 COMBINED COMBINED PANEL 9 PHYSICIAN PHYSICIAN S LAB S LAB SEDIMENTA 06954 COMBINED COMBINED TION RATE 9 PHYSICIAN PHYSICIAN RBC S LAB S LAB NON-AUTOM ATED THYROID 63624 COMBINED COMBINED HORM 9 PHYSICIAN PHYSICIAN UPTK/THYR S LAB S LAB OID HORMONE BINDING RATIO GENERAL 26914 COMBINED COMBINED HEALTH 9 PHYSICIAN PHYSICIAN PANEL S LAB S LAB Encounters Encounter Start End Date Code Location Performer Type Date OFFICE 28819 GASTRO[facility] OUTPATIEN 7 7 EROLOGY T VISIT AND 25 HEPATOL MINUTES OFFICE 36147 [facility] OUTPATIEN 7 7 PHYSICIAN T VISIT S GROUP 15 MINUTES EMERGENCY 73530 [facility] 7 7 [facility] DEPARTMEN INC T VISIT LOW/MODER SEVERITY [facility] - 7 [facility] OUTPATIEN INC T OFFICE 01586 [facility] OUTPATIEN 7 7 PHYSICIAN T VISIT S GROUP 15 MINUTES OFFICE 82857 [facility] OUTPATIEN 7 7 PHYSICIAN T VISIT S GROUP 15 MINUTES OFFICE 12486 [facility] OUTPATIEN 7 7 PHYSICIAN T VISIT S GROUP 25 MINUTES [facility] 7 7 [facility] OUTPATIEN INC T OFFICE 55887 [facility] OUTPATIEN 7 7 PHYSICIAN T VISIT S GROUP 25 MINUTES [facility] - 7 7 [facility] OUTPATIEN INC T OFFICE 27856 [facility] [place] OUTPATIEN 6 6 PHYSICIAN EUG T VISIT S GROUP 25 MINUTES [facility] - 6 6 [facility]PATI[facility] INC T [facility] - 6 6 [facility] OUTPATIEN INC T EMERGENCY 32163 GAIL YOUNG 6 6 PHYSICIAN TIFFANI VILLANUEVA S, [facility] T VISIT HIGH/URGE NT SEVERITY EMERGENCY 80395 [facility] 6 6 [facility] DEPARTMEN INC T VISIT LOW/MODER SEVERITY OFFICE 17682 [facility] OUTPATIEN 6 6 PHYSICIAN SEJAL T VISIT S GROUP 10 MINUTES OFFICE 15208 [facility] [place] OUTPATIEN 6 6 PHYSICIAN STONE T VISIT S GROUP PA-C NEO 15 MINUTES OFFICE 49965 [facility] OUTPATIEN 6 6 PHYSICIAN SEJAL T VISIT S GROUP 10 MINUTES [facility] - 6 6 [facility] OUTPATI[facility] INC T OFFICE 79288 [facility] OUTPATIEN 6 6 PHYSICIAN SEJAL T VISIT S GROUP 15 MINUTES OFFICE 06758 [facility] OUTPATIEN 5 5 PHYSICIAN SEJAL T VISIT S GROUP 10 MINUTES OFFICE 46381 [facility] OUTPATIEN 5 5 PHYSICIAN SEJAL T VISIT S GROUP 10 MINUTES [facility] [place] [facility] 5 5 [facility] - 5 5 [facility]IEN [facility] [place] [facility] 5 5 [facility] [place] - 5 5 [facility] T OFFICE 32571 [facility] OUTPATIEN 5 5 PHYSICIAN SEJAL T VISIT S GROUP 15 MINUTES OFFICE 87163 [facility] [place] OUTPATIEN 5 5 PHYSICIAN JAM T NEW 30 S GROUP MINUTES [facility]OSP[facility] - 5 5 [facility] OUTPATIEN INC T OFFICE 12782 [facility] OUTPATIEN 5 5 PHYSICIAN SEJAL T VISIT S GROUP 15 MINUTES OFFICE 72319 [facility] OUTPATIEN 5 5 PHYSICIAN SEJAL T VISIT S GROUP 15 MINUTES OFFICE 77283 [facility] OUTPATIEN 5 5 PHYSICIAN SEJAL T VISIT S GROUP 15 MINUTES OFFICE 45170 [facility] [place] OUTPATIEN 5 5 PHYSICIAN JACQUELINE T VISIT S GROUP 15 MINUTES OFFICE 48600 [facility]IN[facility] OUTPATIEN 5 5 MEDICAL L T VISIT SERV 25 FOUNDATIO MINUTES N [facility]OSP[facility] - 5 5 [facility] OUTPATIEN INC T OFFICE 18362 [facility] OUTPATIEN 5 5 PHYSICIAN SEJAL T VISIT S GROUP 15 MINUTES [facility] - 5 5 [facility] OUTPATIEN INC T OFFICE 79648 [place] [facility] CONSULTAT 5 5 MEDICAL L ION SERV NEW/ESTAB FOUNDATIO PATIENT N 80 MIN [facility] - 5 5 [facility] OUTPATIEN INC T EMERGENCY 98625 [facility] [address] [facility] EMERGENCY T VISIT PHYS MODERATE SEVERITY [facility] - 4 4 [facility] OUTPATIEN INC T OFFICE 81618 [facility] OUTPATIEN 4 4 PHYSICIAN SEJAL T VISIT S GROUP 15 MINUTES OFFICE 41463 [facility] OUTPATIEN 4 4 PHYSICIAN SEJAL T VISIT S GROUP 15 MINUTES OFFICE 30519 [facility] OUTPATIEN 4 4 PHYSICIAN SEJAL T VISIT S GROUP 10 MINUTES OFFICE 10592 [facility] CONSULTAT 4 4 ION NEW/ESTAB PATIENT 40 MIN OFFICE 41606 [facility] [place] OUTPATIEN 4 4 PHYSICIAN SEJAL T VISIT S GROUP 15 MINUTES OFFICE 90437 [place] OUT[facility]IEN 4 4 SEJAL SEJAL T VISIT 15 MINUTES OFFICE 55631 [place] OUTPATIEN 4 4 SEJAL SEJAL T VISIT 15 MINUTES OFFICE 26578 [place] OUTPATIEN 4 4 SEJAL SEJAL T VISIT 10 MINUTES [facility] - [facility] 4 [facility] T [facility] 4 4 [facility] T [facility]PAT[facility] INC T OFFICE 44966 [facility] OUTPATIEN 4 4 PHYSICIAN SEJAL T VISIT S GROUP 15 MINUTES [facility] 4 [facility] OUTPATIEN INC T Emergency CAMILA Billingsley (ER) 3 08:45 3 11:03 [facility] EMERGENCY 55687 TEVIN LOVELACE DEPT 0 0 EMERGENCY SEJAL VISIT SERVICES HIGH SEVERITY& THREAT FUNJ EMERGENCY 33749 [facility] 0 0 [facility] DEPARTMEN INC T VISIT HIGH/URGE NT SEVERITY [facility]OSPITAL [facility] - 0 0 [facility] OUTPATIEN INC T EMERGENCY 71775 [facility] 9 9 [facility] DEPARTMEN INC T VISIT LOW/MODER SEVERITY EMERGENCY 14203 TEVIN LOVELACE, 9 [facility] HIGH/URGE ASSOCIATE NT S SEVERITY [facility] - 9 9 [facility] OUTPATIEN INC T
--- OUTSIDE RECORDS SUMMARY | 2016-11-25 13:35 | External Medical Summary Rpt ---
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 Phone [employer] Unavailable Unavailable INC, [employer] ARMS DON, ARMS DON Unavailable Unavailable CELESTIN ALL, CELESTIN ALL Unavailable Unavailable [facility] Unavailable Unavailable [facility], [facility] CASE, CASE Unavailable Unavailable CHAVDA PAUL, CHAVDA Unavailable Unavailable PAUL [facility], Unavailable Unavailable [facility] Unavailable Unavailable LAB, [facility] UPTON TIESHA, UPTON TIESHA Unavailable Unavailable ALESHIA PAT, ALESHIA PAT Unavailable Unavailable ORIANA MELVIN, Unavailable Unavailable ORIANA MELVIN ORIANA MELVIN, Unavailable Unavailable ORIANA MELVIN MARIAH CORONEL PA-C Unavailable Unavailable NEOMARIAH PA-C [facility] Unavailable [place]available [place] FRYMAN EUG, FRYMAN Unavailable Unavailable EUG [place], [place] Unavailable Unavailable [place] SEJAL, [place] Unavailable Unavailable SEJAL [place] SEJAL, [place] Unavailable Unavailable SEJAL [place], FELICITAS S, Unavailable Unavailable [place], FELICITAS S [facility] Unavailable Unavailable [facility], [facility] FAROOQ RHO, FAROOQ Unavailable Unavailable RHO [facility] Unavailable Unavailable INC, [facility] Unavailable Unavailable [facility], Unavailable [facility]available [facility] EDMON[facility]ON TRA, [facility] Unavailable Unavailable [facility] Unavailable Unavailable GROUP PS, [facility] Unavailable [facility]available [facility], [facility], Unavailable [facility]available [facility] Un[facility] CHAPMAN JACQUELINE, CHAPMAN Unavailable Unavailable JACQUELINE YOEL ANT, YOEL ANT Unavailable Unavailable [facility] Unavailable Unavailable SERVICES, [facility] EFE SANGEETHA, EFE Unavailable Unavailable [...] #3938 SOKAN BAB, SOKAN BAB Unavailable Unavailable [facility] Unavailable Unavailable EMERGENCY PHYS, [facility] PANDYA BRANDY, PANDYA Unavailable Unavailable [...] USE 10-03-2016 [facility] Z794 GROUP HOME 10-03-2016 [facility] CURRENT USE [facility] OF INSULIN INC E039 HYPOTHYROID 08-25-2016 [facility] ISM PHYSICIANS UNSPECIFIED GROUP I10 ESSENTIAL 08-18-2016 [facility] PRIMARY PHYSICIANS HYPERTENSIO GROUP N [id number] PAIN IN 04-06-2016 [facility] RIGHT PHYSICIANS SHOULDER GROUP [id number] OTHER 03-28-2016 [facility] SYNOVITIS [facility] TENOSYNOVIT IS RIGHT SHOULDER [id number] UNS ROT 03-28-2016 [facility] PHYS[facility]ANS, TEAR/RUPT PLLC RT SHLDR NOT SPEC TRAUMAT M545 LOW BACK 10-09-2015 [facility] PAIN PHYSICIANS GROUP [id number] STRAIN 10-09-2015 [facility] MUSCLE & PHYSICIANS TENDON UNS GROUP WALL THORAX INIT ENC J309 ALLERGIC 09-05-2015 [facility] RHINITIS PHYSICIANS UNSPECIFIED GROUP J40 BRONCHITIS 09-05-2015 [facility] NOT PHYSICIANS SPECIFIED GROUP ACUTE OR CHRONIC J329 CHRONIC 07-22-2015 [facility] SINUSITIS PHYSICIANS UNSPECIFIED GROUP R5383 OTHER 07-12-2015 [facility] INC 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 Z9889 OTHER 02-22-2015 [place]OK[place]NE HILL SPECIFIED [facility] 82865 OTHER ACUTE 01-30-2015 [facility] POSTOPERATI GROUP PS VE PAIN 05616 OSTEOARTHRO 01-30-2015 [facility] UNSPEC [facility] WHETHER GEN/LOC SHLDR REGION 16545 UNSPECIFIED 01-30-2015 [facility] ARTHROPATHY SHOULDER REGION 55267 PAIN IN 01-30-2015 [facility]INT, [facility] SHOULDER REGION 68719 PARTIAL 01-30-2015 [facility] TE[facility] OF ANESTHESIA ROTATOR GROUP PS CUFF 7262 OTHER 01-30-2015 [facility] AFFECTIONS [facility] OF SHOULDER REGION NEC 10547 COMPLETE 01-30-2015 [facility] RUPTURE OF [facility] ROTATOR CUFF 4290 UNSPECIFIED 01-22-2015 TIESHA UPTON MD MYOCARDITIS CONSULTING SRV 55636 SHORTNESS 01-18-2015 [facility] [place] OF BREATH [facility] V571 OTHER 01-14-2015 [place] THERAPY INC 42013 DIAB W/O 12-11-2014 [facility] COMP TYPE PHYSICIANS II/UNS NOT GROUP STATED UNCNTRL 3559 MONONEURITI 12-11-2014 [facility] S OF PHYSICIANS UNSPECIFIED GROUP SITE 4556 UNSPEC 12-11-2014 [facility] HEMORRHOIDS PHYSICIANS WITHOUT GROUP MENTION COMPLICATIO N 17743 DISPLCMT 12-11-2014 [facility] LUMBAR PHYSICIANS INTERVERT GROUP DISC W/O MYELOPATHY 7242 LUMBAGO 11-12-2014 [facility] 7231 CERVICALGIA 10-24-2014 [facility] 59955 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 7234 BRACHIAL 09-13-2014 [facility] NEURITIS OR PHYSICIANS GROUP RADICULITIS NOS 7244 THORACIC/LEEANNE 09-13-2014 [facility] MBOSACRAL PHYSICIANS NEURITIS/RA GROUP DICULITIS UNSPEC 7840 HEADACHE 09-13-2014 [facility] PHYSICIANS GROUP 4730 CHRONIC 08-23-2014 [facility] MAXILLARY PHYSICIANS SINUSITIS GROUP 4732 CHRONIC 08-23-2014 [facility] ETHMOIDAL PHYSICIANS SINUSITIS GROUP 4779 ALLERGIC 08-23-2014 [facility] RHINITIS PHYSICIANS CAUSE GROUP UNSPECIFIED 2449 UNSPECIFIED 08-17-2014 [facility]YPOT[facility] ISM 4739 UNSPECIFIED 07-17-2014 [facility] SINUSITIS PHYSICIANS GROUP 2538 OTH 07-11-2014 [facility] DISORDERS & INC SYNDROMES 4731 CHRONIC 07-11-2014 [facility]INUSITIS [facility] 33152 OTHER 06-29-2014 [place] [facility] FAT[facility] 6823 CELLULITIS 02-18-2014 [facility] OF UPPER PHYS ARM AND FOREARM 2724 OTHER AND 02-09-2014 [facility] UNSPECIFIED PHYSICIANS GROUP HYPERLIPIDE HOWARD 4019 UNSPECIFIED 02-09-2014 [facility] ESSENTIAL [facility] HYPERTENSIO INC N 3829 UNSPECIFIED 10-13-2013 [place] SEJAL OTITIS MEDIA 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 61069 DECREASED 07-20-2013 [facility] LIBIDO PHYSICIANS GROUP 14689 OTHER 07-19-2013 [facility] DISEASES OF MEDICAL LUNG NOT IMAGING ASS ELSEWHERE CLASSIFIED 00765 UNSPECIFIED 12-30-2009 [facility] EPIDIDYMITI S 46490 OT ORCHIT 12-30-2009 [facility] EPIDIDYMIT& [facility] EPIDIDYMO-O INC RCHIT W/O ABSC 6089 UNSPECIFIED 12-30-2009 [facility] DISORDER MEDICAL OF MALE IMAGING ASS GENITAL [...] 10 2- 0- 00 06 TO ve WY 26 20 20 08 WN IL 80 17 17 43 8 92 PH 10 AR MA MG CY TA OF BL ET CY NT HI AN A ME 68 05 06 60 30 00 HO Ac TF 38 -2 -1 .0 00 ME ti OR 20 2- 6- 00 06 TO ve NC 76 20 20 07 WN N 00 [...] 10 8- 6- 00 06 TO ve WY 26 20 20 08 WN IL 80 [...] 20 4- 9- 00 06 TO ve NC 76 20 20 07 WN N 00 [...] 10 3- 8- 00 06 TO ve WY 26 20 20 08 WN IL 80 [...] OR 20 7- 1- 06 TO ve NC 76 20 20 07 WN N 00 [...] NO 00 4- 4- 06 TO ve WY 51 20 20 08 WN IL 40 17 17 21 3 35 PH 10 AR MA MG CY TA OF BL ET CY NT HI AN A LI 02 30 30 00 HO Ac SI 18 -2 -2 .0 00 ME ti NO 00 7- 4- 06 TO ve WY 51 20 20 07 WN IL 40 [...] 00 9- 0- 00 06 TO ve WY 51 20 20 07 WN IL 40 16 17 54 3 53 PH 10 AR MA MG CY TA OF BL ET CY NT HI AN A ME 68 12 01 60 30 00 HO Ac TF 38 -1 -2 .0 00 ME ti OR 20 9- 0- 00 06 TO ve NC 76 20 20 07 WN N 00 [...] 2 94 PH CE AR TA MA NC CY NO PH OF EN CY 5- [...] Procedure DOS Code Location Performer Comment HEPATITIS 34581 [facility] A [facility] ANTIBODY INC INC HAAB BLOOD 09663 [facility] COUNT 7 [facility] COMPLETE INC INC AUTO&AUTO DIFRNTL WBC HEPATITIS 63452 [facility] C 7 [facility] ANTIBODY INC INC HEPATITIS 25136 [facility] B CORE 7 [facility] [place] [address] [facility] HEPATITIS 7 [facility] B INC INC SURFACE ANTIGEN COMPREHEN 30744 [facility] SIVE 7 [facility] METABOLIC INC INC PANEL UNCLASSIF J3490 [facility] IED DRUGS 7 [place] [address] [facility] INFUSION 7 [facility] H[facility] THERAPY/P INC INC ROPHYLAXI S /DX 1ST TO 1 HR INJECTION J0696 [facility] [place] 7 PHYSICIAN CEFTRIAXO S GROUP NE SODIUM PER 250 MG THERAPEUT 92540 [facility] [place] IC 7 PHYSICIAN PROPHYLAC S GROUP TIC/DX INJECTION SUBQ/IM HEMOGLOBI 35845 [facility] N 7 [facility] GLYCOSYLA INC INC GRACE A1C HEMOGLOBI 15072 [facility] N 7 [facility] GLYCOSYLA [place] [address] T[facility] THYROID 7 [facility] STIMULATI [place] [address] [facility] FREE 7 [facility] THYROXINE INC INC BASIC 81165 [facility] METABOLIC 7 MEM HOS[facility] MEM [...] IES INC ABDUCT RESTRAINE R PREFAB RADEX 14568 [facility] [place] SHOULDER 6 MEDICAL MELVIN COMPLETE IMAGING MINIMUM 2 ASS VIEWS THERAPEUT 29464 [facility] IC 6 [facility] PROPHYLAC INC INC TIC/DX INJECTION SUBQ/IM THERAPEUT 00679 [facility] LEMUS IC 6 PHYSICIAN STONE PROPHYLAC S GROUP PA-C NEO TIC/DX INJECTION SUBQ/IM INJECTION J0696 [facility] STONE CEFTRIAXO S GROUP PA-C NEO NE SODIUM PER 250 MG INJECTION J1040 [facility] 6 PHYSICIAN STONE METHYLPRE S GROUP PA-C NEO DNISOLONE ACETATE 80 MG INJECTION J1040 [facility] 6 PHYSICIAN SEJAL METHYLPRE S GROUP DNISOLONE ACETATE 80 MG INJECTION J0696 [facility] 6 PHYSICIAN SEJAL CEFTRIAXO S GROUP NE SODIUM PER 250 MG THERAPEUT 68124 [facility] IC 6 PHYSICIAN SEJAL PROPHYLAC S GROUP TIC/DX INJECTION SUBQ/[place] [address] [facility] THYROXINE 6 [facility] TOTAL INC INC CREATINE 78776 [facility] KINASE 6 [facility] [place] [address] T[facility] THYROID 6 [facility] STIMULATI INC INC NG HORMONE TSH COLLECTIO 29981 [facility] N VENOUS 6 [facility] BLOOD INC INC VENIPUNCT URE COMPREHEN 72588 [facility] SIVE 6 [facility] METABOLIC INC INC PANEL HEMOGLOBI 08254 [facility] N 6 [facility] GLYCOSYLA INC INC GRACE A1C BLOOD 74869 [facility] COUNT 6 [facility] COMPLETE INC INC AUTO&[place] [address] [facility] TROPONIN 6 [facility] QUANTITAT INC INC EVELIN CREATINE 61019 [facility] KINASE MB 6 [facility] FRACTION INC INC ONLY INJECTION J0696 [facility] [place] 5 PHYSICIAN SEJAL CEFTRIAXO S GROUP NE SODIUM PER 250 MG INJECTION J1040 [facility] [place] 5 PHYSICIAN SEJAL METHYLPRE S GROUP DNISOLONE ACETATE 80 MG THERAPEUT 15577 [facility] IC 5 PHYSICIAN SEJAL PROPHYLAC S GROUP TIC/DX INJECTION SUBQ/IM RADEX 62213 [facility] SHOULDER 5 [facility] MINIMUM 2 VIEWS ARTHROSCO 77144 [facility] ARMS [facility] PY 5 [facility] SHOULDER W/CORACOA CRM LIGMNT RELEASE CLAVICULE 33893 [facility] CTOMY 5 [facility] PARTIAL ANES 39440 [facility] YOEL ANT ARTHRS 5 ANESTHESI HUMERAL A GROUP H/N PS STRNCLAV & SHOULDER NOS ARTHROSCO 33699 [facility] ARMS [facility] PY [facility] SHOULDER SURG DEBRIDEME NT EXTENSIVE SINGLE 13672 [facility] ANT NERVE 5 ANESTHESI BLOCK [place] [address] [facility] ALESHIA PAT SURG 5 [facility] PATHOLOGY GROSS&SEJAL ROSCOPIC EXAM DECALCIFI 18177 [facility] ALESHIA PAT CATION 5 [facility] PROCEDURE ECG 80198 TIESHA UPTON UPTON TIESHA ROUTINE 5 MD ECG CONSULTIN W/LEAST G SRV 12 LDS I&R ONLY RADIOLOGI 77167 [facility] [place] FAROOQ C EXAM 5 RADIOLOGY RHO CHEST 2 VIEWS FRONTAL&L ATERAL OCCUPATIO 50186 [facility] NAL 5 [facility] THERAPY INC INC EVALUATIO N MRI ANY 39269 BOBOO ALTAMIRANO JT UPPER 5 [facility] W/O CONTRAST MATRL RADEX 81225 [facility] [place] [facility] SHOULDER 5 RADIOLOGY RHO COMPLETE MINIMUM 2 VIEWS INJECTION J1885 [facility] [place] 5 PHYSICIAN SEJAL KETOROLAC S GROUP TROMETHAM INE PER 15 MG INJECTION J1100 [facility] [place] 5 PHYSICIAN SEJAL DEXAMETHO S GROUP SONE SODIUM PHOSPHATE 1 MG THERAPEUT 36418 [facility] [place] IC 5 PHYSICIAN SEJAL PROPHYLAC S GROUP TIC/DX INJECTION SUBQ/IM THERAPEUT 34625 [facility] JONATAN IC 5 [facility] TIC/DX INJECTION SUBQ/IM INJECTION J1885 [facility] YMAN 5 [facility] TROMETHAM INE PER 15 MG INJ J0702 [facility] PETTEFidelia BETAMETHA 5 PHYSICIAN GRACIE SONE S GROUP ACETATE & PHOSPHATE 3 MG ARTHROCEN 01876 [facility] PETTEFidelia TESIS 5 PHYSICIAN JAM ASPIR&/IN S GROUP J MAJOR JT/BURSA W/O US RADEX 71241 [facility] CELESTIN ALL SHOULDER 5 MEDICAL COMPLETE IMAGING MINIMUM 2 ASS VIEWS COLLECTIO 00289 [facility] N VENOUS 5 [facility] [place] [address] [facility] THYROID 5 [facility] STIMULATI INC INC NG HORMONE TSH THERAPEUT 16388 [facility] [place] IC 5 PHYSICIAN SEJAL PROPHYLAC S GROUP TIC/DX INJECTION SUBQ/IM INJECTION J1040 [facility] 5 PHYSICIAN SEJAL METHYLPRE S GROUP DNISOLONE ACETATE 80 MG INJECTION J0696 [facility] [place] 5 PHYSICIAN SEJAL CEFTRIAXO S GROUP NE SODIUM PER 250 MG INJECTION A9576 [facility]OTT 5 [facility] GADOTERID INC INC OL PROHANCE MULTIPACK PER ML MRI BRAIN 74488 [facility] BRAIN 5 MEDICAL MELVIN STEM W/O IMAGING W/CONTRAS ASS T MATERIAL BASIC 70862 [facility] METABOLIC 5 [facility] PANEL INC INC CALCIUM TOTAL CORTISOL 62193 [facility] TOTAL 5 [place] [address] T[facility] THYROID 5 [facility] STIMULATI INC INC NG HORMONE TSH COLLECTIO 56948 [facility] N VENOUS 5 [facility] [place] [address] [facility] FREE 5 [facility] [place] [address] [facility] PROLACTIN 5 [facility] INC INC GAMMAGLOB 53036 [facility] ULIN 5 [facility] IMMUNOGLO INC INC BULIN SUBCLASSE S INCISION 56934 [facility] SOKAN BAB & 4 DAMIAN DRAINAGE EMERGENCY ABSCESS PHYS COMPLICAT ED/[place] [address] [facility] CHAVDA TESTOSTER 4 [facility] TOTAL INC BLOOD 33499 [facility] PANDYA COUNT 4 [facility] BRANDY COMPLETE INC AUTO&AUTO DIFRNTL WBC HEMOGLOBI 81112 [facility] N 4 [facility] H[facility] GLYCOSYLA [place] [address] T[facility] THYROID 4 [facility] STIMULATI INC INC NG HORMONE TSH CYANOCOBA 63147 [facility] PANDYA BETSY 4 [facility] BRANDY VITAMIN INC B-12 [place] [address] [facility] THYROXINE 4 [facility] TOTAL INC INC COMPREHEN 04771 T[facility] SIVE 4 [facility] METABOLIC INC INC PANEL THERAPEUT 78663 [facility] [place] IC 4 PHYSICIAN SEJAL PROPHYLAC S GROUP TIC/DX INJECTION SUBQ/[place] [address] [facility] MAGNESIUM 4 [facility] INC INC HEPATITIS 19766 [facility] B CORE 4 [facility] ANTIBODY INC INC HBCAB TOTAL HEPATITIS 86170 T[facility] B SURF 4 [facility] [address] [facility] HEPATITIS 4 [facility] [place] [address] [facility] THYROXINE 4 [facility] [place] [address] [facility] VITAMIN A 4 [facility] INC INC HEPATITIS 69085 [facility] A 4 [facility] ANTIBODY INC INC HAAB COMPREHEN 45056 [facility] SIVE 4 [facility] [address] T[facility] THYROID 4 [facility] STIMULATI INC INC NG HORMONE TSH HEMOGLOBI 28784 [facility] N 4 [facility] GLYCOSYLA INC INC GRACE A1C URNLS DIP 83272 [facility]OTT 4 [facility] STICK/TAB INC INC LET REAGENT AUTO MICROSCOP Y HEPATITIS 47234 [facility] C 4 [facility] ANTIBODY INC INC BLOOD 62338 [facility] COUNT 4 [facility] COMPLETE INC INC AUTO&AUTO DIFRNTL WBC BLOOD 18806 [facility] COUNT 4 [facility] COMPLETE INC INC AUTO&AUTO DIFRNTL WBC COMPREHEN 75313 [facility] SIVE 4 [facility] METABOLIC INC INC PANEL 3D 36453 [facility] RENDERING 4 [facility] W/INTERP INC INC & POSTPROCE [place]PER[place] ON 3D 46382 [place] RENDERING 4 MELVIN MELVIN W/INTERP& POSTPROC DIFF WORK STATION THERAPEUT 38744 [facility] [place] IC 4 PHYSICIAN SEJAL PROPHYLAC S GROUP TIC/DX INJECTION SUBQ/IM INJECTION J3420 [facility] [place] VIT B-12 4 PHYSICIAN SEJAL S GROUP CYANOCOBA BETSY TO 1000 MCG RADIOLOGI 42072 [facility] Barney EXAM 4 [facility] CHEST 2 INC INC VIEWS FRONTAL&[place] [address] [place] EFE SCROTUM & 0 MEDICAL SANGEETHA CONTENTS IMAGING ASS BASIC 47762 [facility] METABOLIC 0 [facility] PANEL INC INC CALCIUM TOTAL BLOOD 27044 [facility] COUNT 0 [facility] COMPLETE INC INC AUTO&AUTO DIFRNTL WBC URNLS DIP 57584 [facility] 0 [facility] STICK/TAB INC [place] [address] [facility] INFUSION 9 [facility] THERAPY/P INC INC ROPHYLAXI S /DX 1ST TO 1 HR LIPID 09103 COMBINED COMBINED PANEL 9 PHYSICIAN PHYSICIAN S LAB S LAB SEDIMENTA 54394 COMBINED COMBINED TION RATE 9 PHYSICIAN PHYSICIAN RBC S LAB S LAB NON-AUTOM ATED THYROID 75635 COMBINED COMBINED HORM 9 PHYSICIAN PHYSICIAN UPTK/THYR S LAB S LAB OID HORMONE BINDING RATIO GENERAL 19831 COMBINED COMBINED HEALTH 9 PHYSICIAN PHYSICIAN PANEL S LAB S LAB Encounters Encounter Start End Date Code Location Performer Type Date OFFICE 24038 GASTROENT CASE OUTPATIEN 7 7 EROLOGY T VISIT AND 25 HEPATOL MINUTES OFFICE 47719 [facility] [place] OUTPATIEN 7 7 PHYSICIAN T VISIT S GROUP 15 MINUTES EMERGENCY 20870 [facility] 7 7 [facility] DEPARTMEN INC T VISIT LOW/MODER SEVERITY [facility]OSPITAL [facility] - 7 7 [facility] OUTPATIEN INC T OFFICE 94863 [facility] [place] OUTPATIEN 7 7 PHYSICIAN T VISIT S GROUP 15 MINUTES OFFICE 53300 [facility] [place] OUTPATIEN 7 7 PHYSICIAN T VISIT S GROUP 15 MINUTES OFFICE 20836 [facility] [place] OUTPATIEN 7 7 PHYSICIAN T VISIT S GROUP 25 MINUTES HOSPITAL [facility] - 7 7 [facility] OUTPATIEN INC T OFFICE 74486 [facility] [place] OUTPATIEN 7 7 PHYSICIAN T VISIT S GROUP 25 MINUTES HOSPITAL [facility] - 7 7 [facility] OUTPATIEN INC T OFFICE 21335 [facility] FRYMAN OUTPATIEN 6 6 PHYSICIAN EUG T VISIT S GROUP 25 MINUTES HOSPITAL [facility] - 6 6 [facility] OUTPATIEN INC T [facility]OSPITAL [facility] - 6 6 [facility] OUTPATIEN INC T EMERGENCY 51525 GAIL YOUNG 6 6 PHYSICIAN TIFFANI VILLANUEVA S, [facility] T VISIT HIGH/URGE NT SEVERITY EMERGENCY 29578 [facility] 6 6 [facility] DEPARTMEN INC T VISIT LOW/MODER SEVERITY OFFICE 67344 [facility] [place] OUTPATIEN 6 6 PHYSICIAN SEJAL T VISIT S GROUP 10 MINUTES OFFICE 60653 [facility] LEMUS OUTPATIEN 6 6 PHYSICIAN STONE T VISIT S GROUP PA-C NEO 15 MINUTES OFFICE 64157 [facility] [place] OUTPATIEN 6 6 PHYSICIAN SEJAL T VISIT S GROUP 10 MINUTES HOSPITAL [facility] - 6 6 [facility] OUTPATIEN INC T OFFICE 91372 [facility] [place] OUTPATIEN 6 6 PHYSICIAN SEJAL T VISIT S GROUP 15 MINUTES OFFICE 40322 [facility] [place] OUTPATIEN 5 5 PHYSICIAN SEJAL T VISIT S GROUP 10 MINUTES OFFICE 09833 [facility] [place] [facility] 5 5 PHYSICIAN SEJAL T [facility]ISIT S GROUP 10 MINUTES [facility] 5 5 [facility] 5 5 [facility] - 5 5 [facility] T OFFICE [id number] [facility] [place] [facility] 5 5 PHYSICIAN SEJAL T VISIT S GROUP 15 MINUTES OFFICE [id number] [facility] OUTPATIEN 5 5 PHYSICIAN JAM T NEW 30 S GROUP MINUTES [facility] T OFFICE [id number] [facility] [place] [facility] 5 5 PHYSICIAN SEJAL T VISIT S GROUP 15 MINUTES OFFICE 03782 [facility] [place] [facility] 5 5 PHYSICIAN SEJAL T VISIT S GROUP 15 MINUTES OFFICE [id number] [facility] [place] OUTPAT[facility] 5 5 PHYSICIAN SEJAL T VISIT S GROUP 15 MINUTES OFFICE 38415 [facility] CHAPMAN OUTPATIEN 5 5 PHYSICIAN JACQUELINE T VISIT S GROUP 15 MINUTES OFFICE 18403 [facility] OUTPATIEN 5 5 MEDICAL L T VISIT SERV 25 FOUNDATIO MINUTES N [facility] OFFICE 44715 [facility] [place] [facility]PAT[facility] 5 5 PHYSICIAN SEJAL T VISIT S GROUP 15 MINUTES [facility] 56823 [place] [facility] CONS[facility]AT 5 5 MEDICAL L ION SERV NEW/ESTAB FOUNDATIO PATIENT N 80 MIN [facility] T EMERGENCY [id number] [facility] 4 4 [facility] EMERGENC[facility] T VISIT PHYS MODERATE [facility]VERITY [facility] OFFICE 96468 [facility] [place] [facility] 4 4 PHYSICIAN SEJAL T VISIT S GROUP 15 MINUTES OFFICE [id number] [facility] [place] [facility] 4 4 PHYSICIAN SEJAL T VISIT S GROUP 15 MINUTES OFFICE 19086 [facility] [place] [facility] 4 4 PHYSICIAN SEJAL T VISIT S GROUP 10 MINUTES OFFICE 66445 [facility] CONS[facility] 4 4 ION NEW/ESTAB PATIENT 40 MIN OFFICE 05834 [facility] [place] OUT[facility] 4 4 PHYSICIAN SEJAL T VISIT S GROUP 15 MINUTES OFFICE [id number] [facility] [place] [facility] 4 4 SEJAL SEJAL T VISIT 15 MINUTES OFFICE 82140 [place] [facility] 4 4 SEJAL SEJAL T VISIT 15 MINUTES OFFICE [id number] [place] [facility] 4 4 SEJAL SEJAL T VISIT 10 MINUTES [facility] [id number] [facility] OUTPATIEN 4 4 PHYSICIAN SEJAL T VISIT S GROUP 15 MINUTES [facility] - 4 4 [facility] T Emergency CAMILA Billingsley (ER) 3 08:45 3 11:03 [facility] EMERGENCY 11022 TEVIN LOVELACE DEPT 0 0 EMERGENCY SEJAL VISIT SERVICES HIGH SEVERITY& THREAT FUNJ EMERGENCY [id number] [place] 0 0 [facility] DEPARTMEN INC T VISIT HIGH/URGE NT SEVERITY [facility]OS[facility] - 0 0 [facility] OUTPATIEN INC T EMERGENCY [id number] [facility] 9 9 [facility]PART[facility] T VISIT LOW/MODER SEVERITY EMERGENCY 09340 TEVIN LOVELACE, 9 9 [facility] HIGH/URGE ASSOCIATE NT S SEVERITY [facility] - 9 9 [facility] T
[2016-11-25] MEDS ORDERED: ZITHROMAX Z PA250 MG PO (13:36)
--- NOTE | 2016-11-25 13:38 | Urgent Treatment Center Report ---
History of Present Issue Date/Time Seen by Provider 11/25/16 1326 Visit Reason Pt arrived:Walked Presenting Problem:[place] AND WOKE UP WEDNESDAY FEELING ILL STATES HE IS NAUSEATED AND HAS CHILLS AND VERY SLEEPY. AFEBRILE AT PRESENTATION. STATES HE THINKS HE HAS A FLU-TYPE BUG Location if Accident: Onset of symptoms date/time:11/22/16 or onset unknown for: Have you (or family members/close friends) recently traveled outside the [place]? N If Yes, where/when: Have you had exposure to infectious disease within the past month? TB? Other? Specify: c/o generalized malaise since Wednesday. Isn't sure if it is related to him [place] the local [place] the day before or not. "I didn't even go under water or anything". Rhinorrhea, nasal congestion, PND, fatigue, cough, brown sputum. Denies known fevers but + chills. "I think I have the flu. I really do." + tobacco abuse. Denies SOA, wheezing. Hasn't taken or tried anything for symptoms. "I just know I need an antibiotic even though today is a better day then yesterday". Source patient Exam Limitations no limitations ALLERGIES Coded Allergies: codeine (NA-NAUSEA 10/01/16) Home Medications Reported Medications LISINOPRIL (Lisinopril) 10 MG PO DAILY Levothyroxine Sodium 0.15 MG PO DAILY #30 Gabapentin (Gabapentin 800MG) 800 MG PO Q8 #90 BUPRENORPHINE HCL/NALOXONE HCL (Suboxone 8 MG-2 MG Sl Film) 1 SL BID #28 INSUL REG 30%ISOPHAN 70% HUMAN (Humulin 70-30 Vial) 14 UNITS SC BID #10 Lovastatin 10 MG PO DAILY #30 History Medical History General CAD? No Angina: No LA: No Hypertension? Yes Hyperlipidemia? Yes CHF? No DVT? No PE? No COPD? No Asthma? No Anemia? No GERD? No Gastric ulcers? No GI Bleed? No Hernia? No Thyroid Problems? No Hypothyroidism? No CVA? No Seizures? Yes Diabetes? Yes Insulin Dependent: Yes Insulin Pump: No Home FSBS? Yes Renal Insuffiency? No UTI? No Stones? No BPH? No GB Disease: No Nephritic Syndrome? No Asplenia? No Hepatitis? No Sickle Cell Disease? No Arthritis? No Migraines? No Cataracts? No Glaucoma? No MRSA? No HIV? No TB? No Anxiety? No Depression? No Cancer? No More? Yes Additional hx: FORMER DRUG AND ALCOHOL USE Immunization HX DT/Tetanus > 10 YRS Surgical Hx Previous Surgery?Y L SHOULDER ROTATOR CUFF Family History Family HX Diabetes No CAD No Hypertension No Hyperlipidemia No Cancer Yes TB No Social History Smoking Hx Smoker: Current Every Day Smoker Tobacco: Yes Type Cigarettes Packs/day < 1 Pack Alcohol Alcohol: No Review of Systems All Other Systems Reviewed and Negative Constitutional see HPI, denies diaphoresis, denies weakness Eyes denies drainage ENT see HPI. denies: ear pain, throat pain. Respiratory see HPI Cardiovascular denies chest pain, denies palpitations Gastrointestinal denies no symptoms reported Musculoskeletal see HPI Skin denies rash Psychiatric/Neurological denies headache Physical Exam Vital Signs Vital Signs Date Time Temp Pulse Resp B/P Pulse O2 O2 Flow FiO2 Ox Delivery Rate 11/25 1334 98.7 82 18 123/56 97 11/25 1306 98.7 82 18 123/56 97 11/25 1304 98.7 82 18 123/56 97 General Appearance normal appearance, no apparent distress Eye Exam - bilateral eye normal exam Ear, Nose, Throat normal ENT inspection Neck non-tender Respiratory Status Yes: trachea midline, chest symmetrical, non tender chest, non productive cough. No: respiratory distress, use of accessory muscles, productive cough. Lung Sounds anterior: lungs clear. posterior: lungs clear. bilateral: lungs clear. Cardiovascular regular rate/rhythm, no peripheral edema, no murmur Neurologic alert, oriented x 3 Mental status normal mood/affect Skin normal color, warm/dry Lymphatic no adenopathy Medical Decision Making LABS/Meds/Orders Pt receiving controlled substance in ED? No Results/Orders Laboratory Tests 11/25/16 1326: Influenza Type A Ag NOT DETECTED, Influenza Type B Ag NOT DETECTED Orders Procedure Date/[facility] 1326 Complete Departure Departure Time of Disposition 1333 Disposition DC Home or Self Care(routine) Clinical Impression Primary Impression: Bronchitis Secondary Impressions: Tobacco abuse Condition STABLE Referrals Son FARRELL,Jake Duggan (Family) Follow up IMMEDIATELY for new or worsening symptoms OR no noticeable improvement over the next 48-72 hours. 911 for difficulty breathing. Patient Instructions DI for Acute Bronchitis, How to Quit Tobacco Products Additional Instructions * STOP smoking * No sign of bacterial infection. Likely viral and that is why you are feeling some better. I understand you rather have an antibiotic and given your cough, sputum and tobacco hx, I will order azithromycin * start antibiotic today. Be sure to complete entire prescription even if feeling better. * Encourage fluids, water, gatorade, powerade, pedialyte if /toddler/child * warm salt water gargles * warm fluids * sore throat lozenges * sleep elevated * humidifier/vaporizer Follow up IMMEDIATELY for new or worsening symptoms OR no noticeable improvement over the next 48-72 hours. 911 for difficulty breathing. Discharge Counseling Counseled pt/family regarding diagnosis, test results, medications/RX, home care, follow up needs Prescriptions Current Visit Scripts Azithromycin (Zithromycin (Z-DIANNA) 250MG Tab) 250 MG PO DAILY #6 TAB TAKE TWO (2) TABLETS ON DAY 1, THEN ONE (1) TABLET DAY #2 THRU #5 at [id number]
--- OUTSIDE RECORDS SUMMARY | 2016-11-25 13:39 | External Medical Summary Rpt ---
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 Name Role Phone [employer] Unavailable Unavailable INC, [employer] ARMS DON, ARMS DON Unavailable Unavailable CELESTIN ALL, CELE[facility]IN ALL Unavailable Unavailable [facility] Unavailable Unavailable [facility], [facility] CASE, CASE Unavailable Unavailable CHAVDA PAUL, CHAVDA Unavailable Unavailable PAUL [facility], Unavailable Unavailable [facility] Unavailable Unavailable LAB, [facility] [place] TIESHA, WON MOTLEY Unavailable Unavailable ALESHIA PAT, ALESHIA PAT Unavailable Unavailable ORIANA MELVIN, Unavailable Unavailable ORIANA MELVIN ORIANA MELVIN, Unavailable Unavailable [facility] MELVIN MARIAH CORONEL PA-C Unavailable Unavailable NEOMARIAH PA-C NEO [facility] Unavailable [place]available [place], [facility] FRYMAN EUG, FRYMAN Unavailable Unavailable EUG [place], [place] Unavailable Unavailable [place] SEJAL, [place] Unavailable Unavailable SEJAL [place] SEJAL, [place] Unavailable Unavailable SEJAL [place], FELICITAS S, Unavailable Unavailable FELICITAS LOVELACE S [facility] AND Unavailable Unavailable [facility], [facility] FAROOQ RHO, FAROQO Unavailable Unavailable RHO [facility] Unavailable Unavailable INC, [facility] Unavailable Unavailable [facility], [facility], Unavailable Unavailable [facility] EDMONDSON TRA, EDMONDSON TRA Unavailable Unavailable [facility] Unavailable Unavailable GROUP PS, [facility] Unavailable Unavailable [facility], [facility], Unavailable Unavailable [facility] [employer] [facility], Unavailable Unavailable [facility] CHAPMAN JACQUELINE, CHAPMAN Unavailable Unavailable JACQUELINE YOEL ANT, YOEL ANT Unavailable Unavailable [facility] Unavailable Unavailable SERVICES, [facility] EFE VIVAS, EFE Unavailable Unavailable [facility] TIESHA UPTON MD Unavailable Unavailable CONSULTING SRVTIESHA MD CONSULTING SRV [facility], Unavailable [facility]available PLL[facility], [facility] PETTEY JAM, PETTEY Unavailable Unavailable JAM RENUSCH TIFFANI, RENUSCH Unavailable Unavailable TIFFANI Paula, BOBBI Unavailable Unavailable L [id number], Unavailable Unavailable [id number] SOKAN BAB, SOKAN BAB Unavailable Unavailable [facility] Unavailable Unavailable EMER[facility]ENCY PH[facility], [facility] PANDYA BRANDY, PANDYA Unavailable Unavailable [...] OF OLOGY AND OTHER SERUM HEPATOL ENZYMES B179 ACUTE VIRAL 10-03-2016 [facility] UNSPECIFIED INC E119 TYPE 2 10-03-2016 [facility] DIABETES [facility] MELLITUS INC WITHOUT COMPLICATIO NS Z720 TOBACCO USE 10-03-2016 [facility] INC Z794 CARE HOME 10-03-2016 [facility] CURRENT USE [facility] OF INSULIN INC E039 HYPOTHYROID 08-25-2016 [facility] ISM PHYSICIANS UNSPECIFIED GROUP I10 ESSENTIAL 08-18-2016 [facility] PRIMARY PHYSICIANS HYPERTENSIO GROUP N [id number] PAIN IN 04-06-2016 [facility] RIGHT PHYSICIANS SHOULDER GROUP [id number] OTHER 03-28-2016 [facility] SYNOVITIS [facility] AND INC TENOSYNOVIT IS RIGHT SHOULDER [id number] UNS ROT 03-28-2016 [facility], TEAR/RUPT PLLC RT SHLDR NOT SPEC TRAUMAT M545 LOW BACK 10-09-2015 [facility] PAIN PHYSICIANS GROUP [id number] STRAIN 10-09-2015 [facility] MUSCLE & PHYSICIANS TENDON UNS GROUP WALL THORAX INIT ENC J309 ALLERGIC 09-05-2015 [facility] RHINITIS PHYSICIANS UNSPECIFIED GROUP J40 BRONCHITIS 09-05-2015 [facility] NOT PHYSICIANS SPECIFIED GROUP ACUTE OR CHRONIC J329 CHRONIC 07-22-2015 [facility] SINUSITIS PHYSICIANS UNSPECIFIED GROUP R5383 OTHER 07-12-2015 [facility] FATIGUE [facility] INC 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 Z9889 OTHER 02-22-2015 [place] 6451918 OTHER ACUTE 01-30-2015 [facility] [facility] POSTOPERATI GROUP PS VE PAIN 42287 OSTEOARTHRO 01-30-2015 [place] S UNSPEC [facility] WHETHER GEN/LOC SHLDR REGION 03218 UNSPECIFIED 01-30-2015 [facility] ARTHROPATHY SHOULDER REGION 78628 PAIN IN 01-30-2015 [place] JOINT, [facility] SHOULDER REGION 62344 PARTIAL 01-30-2015 [place] TEAR OF ANESTHESIA ROTATOR GROUP PS CUFF 7262 OTHER 01-30-2015 [place] AFFECTIONS [facility] OF SHOULDER REGION NEC 42521 COMPLETE 01-30-2015 [place] RUPTURE OF [facility] ROTATOR CUFF 4290 UNSPECIFIED 01-22-2015 TIESHA UPTON MD MYOCARDITIS CONSULTING SRV 59354 SHORTNESS 01-18-2015 [facility] [place] OF [facility]ATH [facility]IOLOGY V571 OTHER 01-14-2015 [place] [facility] THERAPY INC 25280 DIAB W/O 12-11-2014 [facility] COMP TYPE PHYSICIANS II/UNS NOT GROUP STATED UNCNTRL 3559 MONONEURITI 12-11-2014 [facility] S OF PHYSICIANS UNSPECIFIED GROUP SITE 4556 UNSPEC 12-11-2014 [facility] HEMORRHOIDS PHYSICIANS WITHOUT GROUP MENTION COMPLICATIO N 75946 DISPLCMT 12-11-2014 [facility] LUMBAR PHYSICIANS INTERVERT GROUP DISC W/O MYELOPATHY 7242 LUMBAGO 11-12-2014 [facility] 7231 CERVICALGIA 10-24-2014 [facility] INC 77631 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 7234 BRACHIAL 09-13-2014 [facility] NEURITIS OR PHYSICIANS GROUP RADICULITIS NOS 7244 THORACIC/LEEANNE 09-13-2014 [facility] MBOSACRAL PHYSICIANS NEURITIS/RA GROUP DICULITIS UNSPEC 7840 HEADACHE 09-13-2014 [facility] PHYSICIANS GROUP 4730 CHRONIC 08-23-2014 [facility] MAXILLARY PHYSICIANS SINUSITIS GROUP 4732 CHRONIC 08-23-2014 [facility] ETHMOIDAL PHYSICIANS SINUSITIS GROUP 5833 ALLERGIC 08-23-2014 [facility] RHINITIS PHYSICIANS CAUSE GROUP UNSPECIFIED 2449 UNSPECIFIED 08-17-2014 [facility] HYPOTHY[facility] ISM 4739 UNSPECIFIED 07-17-2014 [facility] SINUSITIS PHYSICIANS GROUP 2538 OTH 07-11-2014 [place] [facility] DISORDERS & INC SYNDROMES 4731 CHRONIC 07-11-2014 [place] FRONTAL [facility]ICAL SINUSITIS IMAGING ASS 51142 OTHER 06-29-2014 [facility]UE [facility] 1556 CELLULITIS 02-18-2014 [facility] OF UPPER PHYS ARM AND FOREARM 2724 OTHER AND 02-09-2014 [facility] UNSPECIFIED PHYSICIANS GROUP HYPERLIPIDE HOWARD 4019 UNSPECIFIED 02-09-2014 [facility] ESSENTIAL [facility] HYPERTENSIO INC N 3829 UNSPECIFIED 10-13-2013 [place] SEJAL OTITIS MEDIA 23665 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..] BL ET CY NT HI AN A LO 68 06 07 30 [...] BL CY ET NT HI AN A PO 62 06 07 52 30 00 HO Ac LY 17 -2 -1 7. 00 ME ti ET 50 0- 4- 00 06 TO ve HY 44 20 20 0 08 WN LE 23 17 17 93 NE 1 06 PH AR GL MA YC CY OL OF 33 50 CY NT PO HI WD AN A LI 68 06 06 30 30 00 HO Ac SI 00 -0 -3 .0 00 ME ti NO 10 2- 0- 00 06 TO ve IA 26 20 20 08 WN IL 80 17 17 43 8 92 PH 10 AR MA MG CY TA OF BL ET CY NT HI AN A GA 68 05 [...] ET NT HI AN A ME 68 05 06 60 30 00 HO Ac TF 38 -2 -1 .0 00 ME ti OR 20 2- 6- 00 06 TO ve TX 76 20 20 07 WN N 00 [...] BL ET CY NT HI AN A AZ 68 05 06 [...] CY OF CY NT HI AN A EA 08 05 06 10 30 00 HO Ac SY 49 -2 -1 0. 00 ME ti 63 4- 6- 00 06 TO ve TO 15 20 20 0 08 WN UC 60 17 17 76 H 1 89 PH IN AR ARELLANO MA LI CY N SY OF R 0. CY 5 NT ML HI AN A LE 00 05 06 30 30 00 HO Ac VO 52 -0 -0 .0 00 ME ti TH 71 4- 2- 00 06 TO ve YR 34 20 20 08 WN OX 90 17 17 27 IN 1 91 PH E AR 15 MA 0 CY MC G OF TA BL CY ET NT HI AN A GL 60 05 [...] ET OF CY NT HI AN A LI 68 04 05 30 30 00 HO Ac SI 00 -2 -2 .0 00 ME ti NO 10 8- 6- 00 06 TO ve IA 26 20 20 08 WN IL 80 [...] 20 4- 9- 00 06 TO ve TX 76 20 20 07 WN N 00 [...] R OF CY NT HI AN A GL [...] RI CY P NT HI AN A LE 00 04 [...] 10 3- 8- 00 06 TO ve IA 26 20 20 08 WN IL 80 17 17 43 8 92 PH 10 AR MA MG CY TA OF BL ET CY NT HI AN A ME 68 03 03 60 30 00 HO Ac TF 38 -0 -3 .0 00 ME ti OR 20 7- 1- 00 06 TO ve TX 76 20 20 07 WN N 00 17 17 22 HC 5 98 PH L AR 1, MA 00 CY 0 MG OF TA CY BL NT ET HI AN A LE 00 03 03 30 30 00 HO Ac VO 52 -0 -3 .0 00 ME ti TH 71 7- 1- 00 06 TO ve YR 34 20 20 08 WN OX 90 17 17 27 IN 1 91 PH E AR 15 MA 0 CY MC G OF TA BL CY ET NT HI AN A GA 90 30 00 HO Ac BA 00 -2 -2 .0 00 ME ti PE 10 4- 4- 00 06 TO ve NT 00 20 20 07 WN IN 70 17 17 86 3 36 PH 80 AR 0 MA MG CY TA OF BL ET CY NT HI AN A LI 68 02 03 30 30 00 HO Ac SI 18 -2 -2 .0 00 ME ti NO 00 4- 4- 00 06 TO ve IA 51 20 20 08 WN IL 40 17 17 21 3 35 PH 10 AR MA MG CY TA OF BL ET CY NT HI AN A GA 02 90 30 00 HO Ac BA 00 -2 -2 .0 00 ME ti PE 10 7- 4- 00 06 TO ve NT 00 20 20 07 WN IN 70 17 17 86 3 36 PH 80 AR 0 MA MG CY TA OF BL ET CY NT HI AN A LE 02 30 30 00 HO Ac VO 52 -2 -2 .0 00 ME ti TH 71 7- 4- 00 06 TO ve YR 34 20 20 08 WN OX 90 17 17 03 IN 1 52 PH E AR 15 MA 0 CY MC G OF TA BL CY ET NT HI AN A LI 68 02 30 30 00 HO Ac SI 18 -2 -2 .0 00 ME ti NO 00 7- 4- 00 06 TO ve IA 51 20 20 07 WN IL 40 17 17 54 3 53 PH 10 AR MA MG CY TA OF BL ET CY NT HI AN A GA 02 90 [...] 00 9- 0- 00 06 TO ve IA 51 20 20 07 WN IL 40 16 17 54 3 53 PH 10 AR MA MG CY TA OF BL ET CY NT HI AN A ME 68 12 01 60 30 00 HO Ac TF 38 -1 -2 .0 00 ME ti OR 20 9- 0- 00 06 TO ve TX 76 20 20 07 WN N 00 [...] 2 94 PH CE AR TA MA TX CY NO PH OF EN CY 5- [...] TA #3 W BL 93 ET 8 Procedures Procedure DOS Code Location Performer Comment BLOOD 62918 [facility] COUNT [facility] COMPLETE INC INC AUTO&AUTO DIFRNTL WBC HEPATITIS 48266 [facility] C 7 [facility] ANTIBODY INC INC UNCLASSIF J3490 [facility] IED DRUGS 7 [facility] INC INC HEPATITIS 85264 [facility] B CORE 7 [facility] [place] [address] [facility] HEPATITIS 7 [facility] [place] [address] [facility] INFUSION 7 [facility] THERAPY/P INC INC ROPHYLAXI S /DX 1ST TO 1 HR HEPATITIS 47109 [facility] A 7 [facility] ANTIBODY INC INC HAAB COMPREHEN 03464 [facility] SIVE 7 [facility] METABOLIC INC INC PANEL THERAPEUT 12395 [facility] [place] IC 7 PHYSICIAN PROPHYLAC S GROUP TIC/DX INJECTION SUBQ/IM INJECTION J0696 [facility] [place] 7 PHYSICIAN CEFTRIAXO S GROUP NE SODIUM PER 250 MG HEMOGLOBI 44881 [facility] N 7 [facility] GLYCOSYLA INC INC GRACE A1C HEMOGLOBI 48893 [facility] N 7 [facility] GLYCOSY[place] [address] [facility] FREE 7 [facility] [place] [address] [facility] THYROID 7 [facility] STIMULATI INC INC NG HORMONE TSH BASIC 86294 [facility] METABOLIC 7 [facility] PANEL INC INC CALCIUM TOTAL DRUG TST G0477 [facility] PRESUMP;C 6 [facility] PBL BEING INC INC READ DC OPT OBV ONLY DRUG TEST G0481 [facility]CTT DEFINITV [address] ID INC INC METH P DAY 8-14 DRUG CL RADEX 02509 [facility] SHOULDER 6 MEDICAL MELVIN COMPLETE IMAGING MINIMUM 2 ASS VIEWS SHOULDER L3650 [facility] 6 TECHNOLOG TECHNOLOG FIG 8 IES INC IES INC ABDUCT RESTRAINE R PREFAB THERAPEUT 93548 [facility] IC 6 [facility] PROPHYLAC INC INC TIC/DX INJECTION SUBQ/IM THERAPEUT 16998 [facility] MARIAH IC 6 PHYSICIAN STONE PROPHYLAC S GROUP PA-C NEO TIC/DX INJECTION SUBQ/IM INJECTION J0696 [facility] MARIAH 6 PHYSICIAN STONE CEFTRIAXO S GROUP PA-C NEO NE SODIUM PER 250 MG INJECTION J1040 [facility] LEMUS 6 PHYSICIAN STONE METHYLPRE S GROUP AKHIL NEO DNISOLONE ACETATE 80 MG INJECTION J1040 COUNTS INCLUDE 234 [facility] 6 PHYSICIAN SEJAL METHYLPRE S GROUP DNISOLONE ACETATE 80 MG INJECTION J0696 COUNTS INCLUDE 234 [facility]ED[facility] AT [facility] 6 PHYSICIAN SEJAL CEFTRIAXO S GROUP NE SODIUM PER [address] [facility] PHYSICIAN SEJAL PROPHYLAC S GROUP TIC/DX INJECTION SUBQ/IM HEMOGLOBI 77088 [facility] N 6 [facility] GLYCOSYLA INC INC GRACE A1C COLLECTIO 59743 [facility] N VENOUS 6 [facility] [place] [address] [facility] THYROID 6 [facility] STIMULATI INC INC NG HORMONE TSH CREATINE 06287 [facility] KINASE MB 6 [facility] FRACTION INC INC ONLY COMPREHEN 01329 [facility] SIVE 6 [facility] METABOLIC INC INC PANEL BLOOD 40816 [facility] COUNT 6 [facility] COMPLETE INC INC AUTO&[place] [address] [facility] TROPONIN 6 [facility] QUANTITAT INC INC EVELIN CREATINE 93533 [facility] KINASE 6 [facility] [place] [address] [facility] THYROXINE 6 [facility] TOTAL INC INC INJECTION J0696 [facility] PHYSICIAN SEJAL CEFTRIAXO S GROUP NE SODIUM PER 250 MG INJECTION J1040 COUNTS INCLUDE 234 BEDS AT [facility] 5 PHYSICIAN SEJAL METHYLPRE S GROUP DNISOLONE ACETATE 80 MG THERAPEUT 25829 COUNTS INCLUDE 234 [facility] AT [facility] IC 5 PHYSICIAN SEJAL PROPHYLAC S GROUP TIC/DX INJECTION SUBQ/IM RADEX 08423 [facility] SHOULDER 5 RADIOLOGY RHO COMPLETE MINIMUM 2 VIEWS ARTHROSCO 57903 [place] ARMS DON PY 5 [facility] SHOULDER SURG DEBRIDEME NT EXTENSIVE SINGLE 06277 [place] YOEL ANT NERVE 5 ANESTHESI BLOCK A GROUP INJECTION PS ARM NERVE CLAVICULE 68671 [place] ARMS DON CTOMY 5 [facility] PARTIAL ANES 82571 [place] YOEL ANT ARTHRS 5 ANESTHESI HUMERAL A GROUP H/N PS STRNCLAV & SHOULDER NOS ARTHROSCO 14730 [place] ARMS DON PY 5 [facility] SHOULDER W/[place] [address] [facility] ALESHIA PAT SURG 5 [facility] GROSS&SEJAL ROSCOPIC EXAM DECALCIFI 45474 [facility], ALESHIA PAT CATION 5 LLC PROCEDURE ECG 79563 TIESHA UPTON UPTON TIESHA ROUTINE 5 MD ECG CONSULTIN W/LEAST G SRV 12 LDS I&R ONLY RADIOLOGI 95174 [facility] [place] [facility] C EXAM 5 RADIOLOGY RHO CHEST 2 VIEWS FRONTAL&L ATERAL OCCUPATIO 54941 [facility] NAL 5 [facility] THERAPY INC INC EVALUATIO N MRI ANY 72637 [facility] [place] KOSTELIC JT UPPER 5 RADIOLOGY PRINCE EXTREMITY W/O CONTRAST MATRL RADEX 01774 [facility] 5 [facility] MINIMUM 2 VIEWS INJECTION J1885 [facility] [place] 5 PHYSICIAN SEJAL KETOROLAC S GROUP TROMETHAM INE PER 15 MG INJECTION J1100 [facility] [place] 5 PHYSICIAN SEJAL DEXAMETHO S GROUP SONE SODIUM PHOSPHATE 1 MG THERAPEUT 97440 [facility] [place] IC 5 PHYSICIAN SEJAL PROPHYLAC S GROUP TIC/DX INJECTION SUBQ/IM THERAPEUT 73326 [facility] CHEUNG IC 5 [facility] TIC/DX INJECTION SUBQ/IM INJECTION J1885 [facility] KENNEDYYMAN 5 [facility] TROMETHAM INE PER 15 MG INJ J0702 [facility] PETTEY BETAMETHA 5 PHYSICIAN JAM SONE S GROUP ACETATE & PHOSPHATE 3 MG ARTHROCEN 27598 [facility] PETTEFidelia TESIS 5 PHYSICIAN GRACIE ASPIR&/IN S GROUP J MAJOR JT/BURSA W/O US RADEX 18090 [place] CELESTIN ALL SHOULDER 5 MEDICAL COMPLETE IMAGING MINIMUM 2 [place] [address] [facility] THYROID 5 [facility] STIMULATI INC INC NG HORMONE TSH COLLECTIO 32705 [facility] N VENOUS 5 [facility] BLOOD INC INC VENIPUNCT URE THERAPEUT 23675 COUNTS INCLUDE 234 [facility] AT [facility] IC 5 PHYSICIAN SEJAL PROPHYLAC S GROUP TIC/DX INJECTION SUBQ/IM INJECTION J1040 [facility] [place] 5 PHYSICIAN SEJAL METHYLPRE S GROUP DNISOLONE ACETATE 80 MG INJECTION J0696 COUNTS INCLUDE 234 [facility] 5 PHYSICIAN SEJAL CEFTRIAXO S GROUP NE SODIUM PER 250 MG INJECTION A9576 [facility] TYLER 5 [facility] GADOTERID INC INC OL PROHANCE MULTIPACK PER ML MRI BRAIN 36633 [facility] BRAIN 5 MEDICAL MELVIN STEM W/O IMAGING W/CONTRAS ASS T MATERIAL BASIC 66747 [facility] METABOLIC 5 [facility] PANEL INC INC CALCIUM TOTAL CORTISOL 86438 [facility] TOTAL 5 [place] [address] [facility] PROLACTIN 5 [facility] INC INC GAMMAGLOB 52628 [facility] ULIN 5 [facility] IMMUNOGLO INC INC BULIN SUBCLASSE S COLLECTIO 19415 [facility] SHERMANON N VENOUS 5 [facility] [place] [address] [facility] FREE 5 [facility] [place] [address] [facility] THYROID 5 [facility] STIMULATI INC INC NG HORMONE TSH INCISION 85435 [facility] BAB & 4 DAMIAN DRAINAGE EMERGENCY ABSCESS PHYS COMPLICAT ED/MULTIP LE BLOOD 05287 [facility] PANDYA COUNT 4 [facility] BRANDY COMPLETE INC AUTO&[place] [address] [facility] HICKSA TESTOSTER 4 [facility] PAUL ONE TOTAL INC CYANOCOBA 75828 T[facility] PANDYA BETSY 4 [facility] VITAMIN INC B-12 [place] [address] [facility] THYROXINE 4 [facility] [place] [address] T[facility] THYROID 4 [facility] STIMULATI INC INC NG HORMONE TSH HEMOGLOBI 36852 [facility] N 4 [facility] GLYCOSYLA INC INC GRACE A1C COMPREHEN 32517 [facility] SIVE 4 [facility] METABOLIC INC INC PANEL THERAPEUT 64015 [facility] [place] IC 4 PHYSICIAN SEJAL PROPHYLAC S GROUP TIC/DX INJECTION SUBQ/IM URNLS DIP 13576 [facility] 4 [facility] STICK/TAB INC INC LET REAGENT AUTO MICROSCOP Y HEMOGLOBI 19924 [facility] N 4 [facility] GLYCOSYLA [place] [address] [facility] THYROID 4 [facility] STIMULATI INC INC NG HORMONE TSH COMPREHEN 96413 [facility] SIVE 4 [facility] [address] [facility] VITAMIN A 4 [facility] INC INC HEPATITIS 74228 T[facility] A 4 [facility] [address] [facility] THYROXINE 4 [facility] [place] [address] [facility] MAGNESIUM 4 [facility] INC INC HEPATITIS 64809 T[facility] B CORE 4 [facility] ANTIBODY INC INC HBCAB TOTAL HEPATITIS 62291 [facility] Christine SURF 4 [facility] [address] [facility] HEPATITIS 4 [facility] B INC INC SURFACE ANTIGEN BLOOD 98591 [facility] COUNT 4 [facility] COMPLETE INC INC AUTO&AUTO DIFRNTL WBC HEPATITIS 41776 [facility] C 4 [facility] ANTIBODY INC INC BLOOD 86760 [facility] COUNT 4 [facility] COMPLETE INC INC AUTO&AUTO DIFRNTL WBC COMPREHEN 67794 [facility] SIVE 4 [facility] METABOLIC INC INC PANEL 3D 69539 [facility] RENDERING 4 [facility] W/INTERP INC INC & [place] 3D 14493 [place] RENDERING 4 MELVIN MELVIN W/INTERP& POSTPROC DIFF WORK STATION THERAPEUT 94460 [facility] [place] IC 4 PHYSICIAN SEJAL PROPHYLAC S GROUP TIC/DX INJECTION SUBQ/IM INJECTION J3420 [facility] 4 PHYSICIAN SEJAL S GROUP CYANOCOBA BETSY TO 1000 MCG RADIOLOGI 55353 [place] C EXAM 4 MEDICAL MELVIN CHEST 2 IMAGING VIEWS ASS FRONTAL&L ATERAL BLOOD 10197 [facility] COUNT 0 [facility] COMPLETE INC INC AUTO&[place] [address] [place] EFE SCROTUM & 0 MEDICAL SANGEETHA CONTENTS IMAGING ASS BASIC 10039 [facility] METABOLIC 0 [facility] PANEL INC INC CALCIUM TOTAL URNLS DIP 45609 [facility] 0 [facility] STICK/TAB INC [place] [address] [facility] INFUSION 9 [facility] THERAPY/P INC INC ROPHYLAXI S /DX 1ST TO 1 HR GENERAL 80834 COMBINED COMBINED HEALTH 9 PHYSICIAN PHYSICIAN PANEL S LAB S LAB SEDIMENTA 89764 COMBINED COMBINED TION RATE 9 PHYSICIAN PHYSICIAN RBC S LAB S LAB NON-AUTOM ATED LIPID 83363 COMBINED COMBINED PANEL 9 PHYSICIAN PHYSICIAN S LAB S LAB THYROID 95373 COMBINED COMBINED HORM 9 PHYSICIAN PHYSICIAN UPTK/THYR S LAB S LAB OID HORMONE BINDING RATIO Encounters Encounter Start End Date Code Location Performer Type Date OFFICE 43766 GASTROENT CASE OUTPATIEN 7 7 EROLOGY T VISIT AND 25 HEPATOL MINUTES OFFICE 58134 [facility] [place] OUTPATIEN 7 7 PHYSICIAN T VISIT S GROUP 15 MINUTES EMERGENCY 50747 [facility] DEPARTMEN INC T VISIT LOW/MODER SEVERITY [facility] OUTPATI[facility] INC T OFFICE 14664 [facility] [place] OUTPATIEN 7 7 PHYSICIAN T VISIT S GROUP 15 MINUTES OFFICE 20910 [facility] [place] OUTPATIEN 7 7 PHYSICIAN T VISIT S GROUP 15 MINUTES OFFICE 32308 [facility] [place] OUTPATIEN 7 7 PHYSICIAN T VISIT S GROUP 25 MINUTES [facility] OUT[facility] INC T OFFICE 53035 [facility] [place] OUTPATIEN 7 7 PHYSICIAN T VISIT S GROUP 25 MINUTES [facility] OUT[facility] INC T OFFICE 35873 [facility] [place] OUTPATIEN 6 6 PHYSICIAN EUG T VISIT S GROUP 25 MINUTES [facility] OUTPATIEN INC T EMERGENCY 55775 GAIL YOUNG [address] [facility] T VISIT HIGH/URGE NT SEVERITY EMERGENCY 56605 [facility] 6 6 [facility] DEPARTMEN INC T VISIT LOW/MODER SEVERITY [facility] OUTPATI[facility] INC T OFFICE 68597 [facility] [place] OUTPATIEN 6 6 PHYSICIAN SEJAL T VISIT S GROUP 10 MINUTES OFFICE 34197 [facility] [place] OUTPATIEN 6 6 PHYSICIAN STONE T VISIT S GROUP PAShukri LARSON 15 MINUTES OFFICE 75470 [facility] [place] OUTPATIEN 6 6 PHYSICIAN SEJAL T VISIT S GROUP 10 MINUTES [facility] INC T OFFICE 52555 [facility] [place] OUTPATIEN 6 6 PHYSICIAN SEJAL T VISIT S GROUP 15 MINUTES OFFICE 54924 [facility] [place] OUTPATIEN 5 5 PHYSICIAN SEJAL T VISIT S GROUP 10 MINUTES OFFICE 14989 [facility] [place] OUTPATIEN 5 5 PHYSICIAN SEJAL T VISIT S GROUP 10 MINUTES [facility] [place] [facility] 5 5 [facility] 5 5 [facility] [place] [facility] 5 5 [facility] [place] - 5 5 [facility] T OFFICE 94447 [facility] [place] OUTPATIEN 5 5 PHYSICIAN SEJAL T VISIT S GROUP 15 MINUTES OFFICE 32550 [facility] [place] OUTPATIEN 5 5 PHYSICIAN JAM T NEW 30 S GROUP MINUTES [facility] - 5 5 [facility] OUTPATIEN CARY [facility] 29804 [facility] [place] OUTPATIEN 5 5 PHYSICIAN SEJAL T VISIT S GROUP 15 MINUTES OFFICE 46608 [facility] [place] OUTPATI[facility] 5 5 PHYSICIAN SEJAL T VISIT S GROUP 15 MINUTES OFFICE 54523 [facility] [place] OUTPATI[facility] 5 5 PHYSICIAN SEJAL T VISIT S GROUP 15 MINUTES OFFICE 23949 [facility] [place] OUTPATIEN 5 5 PHYSICIAN JACQUELINE T VISIT S GROUP 15 MINUTES OFFICE 30943 [facility] OUTPATIEN 5 5 MEDICAL L T VISIT SERV 25 FOUNDATIO MINUTES N [facility] 36671 [facility] [place] OUTPATI[facility] 5 5 PHYSICIAN SEJAL T VISIT S GROUP 15 MINUTES [facility] T OFFICE 29558 [facility] MARTIN[facility] CONSULTAT 5 5 MEDICAL L ION SERV NEW/ESTAB FOUNDATIO PATIENT N 80 MIN EMERGENCY 50739 [facility] 4 4 DAMIAN DEPARTMEN EMERGENCY T VISIT PHYS MODERATE SEVERITY OFFICE 29642 [facility] [place] OUTPATIEN 4 4 PHYSICIAN SEJAL T VISIT S GROUP 15 MINUTES [facility] INC T OFFICE 10892 [facility] [place] OUTPATI[facility] 4 4 PHYSICIAN SEJAL T VISIT S GROUP 15 MINUTES OFFICE 39940 [facility] [place] OUTPATIEN 4 4 PHYSICIAN SEJAL T VISIT S GROUP 10 MINUTES OFFICE 17088 [facility] CONSULTAT 4 4 ION NEW/ESTAB PATIENT 40 MIN OFFICE 70810 [facility] [place] OUTPATIEN 4 4 PHYSICIAN SEJAL T VISIT S GROUP 15 MINUTES OFFICE 26490 [facility] [place] [facility] 4 4 SEJAL SEJAL T VISIT 15 MINUTES OFFICE 56348 [facility] [place] [facility] 4 4 SEJAL SEJAL T VISIT 15 MINUTES [facility] T OFFICE 54534 [facility] [place] [facility] 4 4 SEJAL SEJAL T VISIT 10 MINUTES [facility] T OFFICE 89262 [facility] [place] OUTPATI[facility] 4 4 PHYSICIAN SEJAL T VISIT S GROUP 15 MINUTES [facility] T EMERGENCY 67966 [facility] 0 0 [facility] DEPARTMEN INC T VISIT HIGH/URGE NT SEVERITY EMERGENCY 45205 [facility] LOVELACE DEPT 0 0 EMERGENCY SEJAL VISIT SERVICES HIGH SEVERITY& THREAT [facility] - 0 0 [facility] T EMERGENCY 02948 TEVIN LOVELACE, 9 9 EMERGENCY [facility] T VISIT [facility]IGH/URGE ASSOCIATE NT S [facility] - 9 9 [facility] T EMERGENCY 39448 [facility] 9 9 [facility] T VISIT LOW/MODER SEVERITY
--- OUTSIDE RECORDS SUMMARY | 2016-11-25 13:39 | External Medical Summary Rpt ---
Author Author , [employer] Organization [employer] Address Unknown Phone [email or web address] Care Team Providers Care Knitting Tester Name Role Phone [employer] Unavailable Unavailable INC, [employer] ARMS DON, ARMS DON Unavailable Unavailable [facility] ALL, [facility] ALL Unavailable Unavailable [facility] Un[facility], [facility] CASE, CASE Unavailable Unavailable CHAVDA PAUL, CHAVDA Unavailable Unavailable PAUL [facility], Unavailable Unavailable [facility] Unavailable Unavailable LAB, [facility] [place] TIESHA, WON MOTLEY Unavailable Unavailable ALESHIA PAT, ALESHIA PAT Unavailable Unavailable ORIANA MELVIN, Unavailable Unavailable ORIANA MELVIN ORIANA MELVIN, Unavailable Unavailable ORIANA MELVIN MARIAH CORONEL PA-C Unavailable Unavailable NEOMARIAH PA-C [facility] Unavailable [place] [place] FRYMAN EUG, FRYMAN Unavailable Unavailable EUG [place], [place] Unavailable Unavailable [place] SEJAL, [place] Unavailable Unavailable SEJAL [place] SEJAL, [place] Unavailable Unavailable SEJAL [place], FELICITAS S, Unavailable Unavailable FELICITAS LOVELACE S [facility] AND Unavailable Unavailable [facility], [facility] FAR[facility] RHO, FAROOQ Unavailable Unavailable [facility] Unavailable Unavailable INC, [facility] Unavailable Unavailable [facility], [facility], Unavailable Unavailable [facility] EDMONDSON TRA, [facility] TRA Unavailable Unavailable [facility] Unavailable Unavailable GROUP PS, [facility] Unavailable Unavailable [facility], [facility], Unavailable Unavailable [employer], [facility], Unavailable Unavailable [facility] CHAPMAN JACQUELINE, CHAPMAN Unavailable Unavailable JACQUELINE YOEL ANT, YOEL ANT Unavailable Unavailable [facility] Unavailable Unavailable SERVICES, [facility] FEE VIVAS, EFE Unavailable Unavailable [facility], [...] #3938 SOKAN BAB, SOKAN BAB Unavailable Unavailable [facility] Unavailable Unavailable EMERGENCY PHYS, [facility] PANDYA BRANDY, PANDYA Unavailable [...] USE 10-03-2016 [facility] Z794 LONGTERM 10-03-2016 [facility] CURRENT USE [facility] OF INSULIN INC E039 HYPOTHYROID 08-25-2016 [facility] ISM PHYSICIANS UNSPECIFIED GROUP I10 ESSENTIAL 08-18-2016 [facility] PRIMARY PHYSICIANS HYPERTENSIO GROUP N [id number] PAIN IN 04-06-2016 [facility] RIGHT PHYSICIANS SHOULDER GROUP [id number] OTHER 03-28-2016 [facility] SYNOVITIS [facility] AND INC TENOSYNOVIT IS RIGHT SHOULDER [id number] UNS ROT 03-28-2016 [facility]ANS, TEAR/RUPT PLLC RT SHLDR NOT SPEC TRAUMAT M545 LOW BACK 10-09-2015 [facility] PAIN PHYSICIANS GROUP [id number] STRAIN 10-09-2015 [facility] MUSCLE & PHYSICIANS TENDON UNS GROUP WALL THORAX INIT ENC J309 ALLERGIC 09-05-2015 [facility] RHINITIS PHYSICIANS UNSPECIFIED GROUP J40 BRONCHITIS 09-05-2015 [facility] NOT PHYSICIANS SPECIFIED GROUP ACUTE OR CHRONIC J329 CHRONIC 07-22-2015 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 Z9889 OTHER 02-22-2015 [place] [id number] OTHER ACUTE 01-30-2015 [facility] POSTOPERATI GROUP PS VE PAIN 67572 OSTEOARTHRO 01-30-2015 [facility] S UNSPEC [facility] WHETHER GEN/LOC SHLDR REGION 71059 UNSPECIFIED 01-30-2015 [facility] ARTHROPATHY SHOULDER REGION 91431 PAIN IN 01-30-2015 [facility] JOINT, [facility] SHOULDER REGION 55950 PARTIAL 01-30-2015 [facility] TEAR OF ANESTHESIA ROTATOR GROUP PS CUFF 7262 OTHER 01-30-2015 [facility] AFFECTIONS [facility] OF SHOULDER REGION NEC 33204 COMPLETE 01-30-2015 [facility] RUPTURE OF [facility] ROTATOR CUFF 4290 UNSPECIFIED 01-22-2015 TIESHA U[place] MD MYOCARDITIS CONSULTING SRV 89149 SHORTNESS 01-18-2015 [facility] [place] OF BREATH RADIOLOGY V571 OTHER 01-14-2015 [place] [facility] THERAPY INC 16232 DIAB W/O 12-11-2014 [facility] COMP TYPE PHYSICIANS II/UNS NOT GROUP STATED UNCNTRL 3559 MONONEURITI 12-11-2014 [facility] S OF PHYSICIANS UNSPECIFIED GROUP SITE 4556 UNSPEC 12-11-2014 [facility] HEMORRHOIDS PHYSICIANS WITHOUT GROUP MENTION COMPLICATIO N 36499 DISPLCMT 12-11-2014 [facility] LUMBAR PHYSICIANS INTERVERT GROUP DISC W/O MYELOPATHY 7242 LUMBAGO 11-12-2014 [facility] 7231 CERVICALGIA 10-24-2014 [facility] 17108 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[facility] OF ORGANIC PHYSICIANS ORIGIN GROUP 7234 BRACHIAL 09-13-2014 [facility] NEURITIS OR PHYSICIANS GROUP RADICULITIS NOS 7244 THORACIC/LEEANNE 09-13-2014 [facility] MBOSACRAL PHYSICIANS NEURITIS/RA GROUP DICULITIS UNSPEC 7840 HEADACHE 09-13-2014 [facility] PHYSICIANS GROUP 4730 CHRONIC 08-23-2014 [facility] MAXILLARY PHYSICIANS SINUSITIS GROUP 4732 CHRONIC 08-23-2014 [facility] ETHMOIDAL PHYSICIANS SINUSITIS GROUP 5761 ALLERGIC 08-23-2014 [facility] RHINITIS PHYSICIANS CAUSE GROUP UNSPECIFIED 2449 UNSPECIFIED 08-17-2014 [facility]YPOT[facility] ISM 4739 UNSPECIFIED 07-17-2014 [facility] SINUSITIS PHYSICIANS GROUP 2538 OTH 07-11-2014 [place] [facility] DISORDERS & INC SYNDROMES 4731 CHRONIC 07-11-2014 [facility] SINUSITIS IMAGING ASS 26069 OTHER 06-29-2014 [facility]AISE AND SERV FATIGUE [facility] 6586 CELLULITIS 02-18-2014 [facility] EMERGENCY OF UPPER PHYS ARM AND FOREARM 2724 OTHER AND 02-09-2014 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 LIBIDO PHYSICIANS GROUP 50707 OTHER 07-19-2013 [facility] DISEASES OF MEDICAL LUNG NOT IMAGING ASS ELSEWHERE CLASSIFIED 06292 UNSPECIFIED 12-30-2009 [facility] EPIDIDYMITI S 20963 OTH ORCHIT 12-30-2009 [facility] EPIDIDYMIT& [facility] EPIDIDYMO-O INC RCHIT W/O ABSC 6089 UNSPECIFIED 12-30-2009 [facility] DISORDER MEDICAL OF MALE IMAGING ASS GENITAL [...] 10 2- 0- [address] 26 20 20 08 WN IL 80 [...] 20 2- 6- 00 06 TO ve TN 76 20 20 07 WN N 00 [...] 10 8- 6- [address] 26 20 20 08 WN IL 80 [...] 20 4- 9- 00 06 TO ve TN 76 20 20 07 WN N 00 [...] 10 3- 8- [address] 26 20 20 08 WN IL 80 17 17 43 8 92 PH 10 AR MA MG CY TA OF BL ET CY NT HI AN A ME 68 03 03 60 30 00 HO Ac TF 38 -0 -3 .0 00 ME ti OR 20 7- 1- 00 06 TO ve TN 76 20 20 07 WN N 00 [...] 00 4- 4- [address] 51 20 20 08 WN IL 40 [...] 00 7- 4- [address] 51 20 20 07 WN IL 40 [...] 00 9- 0- [address] 51 20 20 07 WN IL 40 16 17 54 3 53 PH 10 AR MA MG CY TA OF BL ET CY NT HI AN A ME 68 12 01 60 30 00 HO Ac TF 38 -1 -2 .0 00 ME ti OR 20 9- 0- 00 06 TO ve TN 76 20 20 07 WN N 00 [...] 2 94 PH CE AR TA MA TN CY NO PH OF EN CY 5- [...] Procedure DOS Code Location Performer Comment BLOOD 78298 [facility] COUNT 7 [facility] COMPLETE INC INC AUTO&AUTO DIFRNTL WBC HEPATITIS 97980 [facility] C 7 [facility] ANTIBODY INC INC UNCLASSIF J3490 [facility] IED DRUGS 7 [facility] INC INC HEPATITIS 85244 [facility] B CORE 7 [facility] [place] [address] [facility] HEPATITIS 7 [facility] [place] [address] [facility] INFUSION 7 [facility] THERAPY/P INC INC ROPHYLAXI S /DX 1ST TO 1 HR HEPATITIS 03045 [facility] A 7 [facility] ANTIBODY INC INC HAAB COMPREHEN 21452 [facility] SIVE 7 [facility] METABOLIC INC INC PANEL THERAPEUT 67313 [facility] [place] IC 7 PHYSICIAN PROPHYLAC S GROUP TIC/DX INJECTION SUBQ/IM INJECTION J0696 [facility] [place] 7 PHYSICIAN CEFTRIAXO S GROUP NE SODIUM PER 250 MG HEMOGLOBI 07173 [facility] N 7 [facility] GLYCOSYLA INC INC GRACE A1C HEMOGLOBI 07649 [facility] N 7 [facility] GLYCOSY[place] [address] [facility] FREE 7 [facility] [place] [address] T[facility] THYROID 7 [facility] STIMULATI INC INC NG HORMONE TSH BASIC 11607 [facility] METABOLIC 7 [facility] PANEL INC INC CALCIUM TOTAL DRUG TST G0477 [facility] PRESUMP;C 6 [facility] PBL BEING INC INC READ DC OPT OBV ONLY DRUG TEST G0481 [facility] DEFINITV [address] ID INC INC METH P DAY 8-14 DRUG CL RADEX 67459 [facility] SHOULDER 6 MEDICAL MELVIN COMPLETE IMAGING MINIMUM 2 ASS VIEWS SHOULDER L3650 [facility] 6 TECHNOLOG TECHNOLOG FIG 8 IES INC IES INC ABDUCT RESTRAINE R PREFAB THERAPEUT 84810 [facility] IC 6 [facility] PROPHYLAC INC INC TIC/DX INJECTION SUBQ/IM THERAPEUT 94549 [facility] MARIA[facility] IC 6 PHYSICIAN STONE PROPHYLAC S GROUP PA-C NEO TIC/DX INJECTION SUBQ/IM INJECTION J0696 [facility] MARIA[facility] 6 PHYSICIAN STONE CEFTRIAXO S GROUP PA-C NEO NE SODIUM PER [address] [facility] LEMUS 6 PHYSICIAN STONE METHYLPRE S GROUP AKHIL NEO DNISOLONE ACETATE 80 MG INJECTION J1040 REPLACED BY [facility] 6 PHYSICIAN SEJAL METHYLPRE S GROUP DNISOLONE ACETATE 80 MG INJECTION J0696 REPLACED BY [facility] 6 PHYSICIAN SEJAL CEFTRIAXO S GROUP NE SODIUM PER 250 MG THERAPEUT 39133 [facility] PHYSICIAN SEJAL PROPHYLAC S GROUP TIC/DX INJECTION SUBQ/IM HEMOGLOBI 04463 [facility] N 6 [facility] GLYCOSYLA INC INC GRACE A1C COLLECTIO 06643 [facility] N VENOUS 6 [facility] [place] [address] [facility] THYROID 6 [facility] STIMULATI INC INC NG HORMONE TSH CREATINE 99246 [facility] KINASE MB 6 [facility] FRACTION INC INC ONLY COMPREHEN 23139 [facility] SIVE 6 [facility] METABOLIC INC INC PANEL BLOOD 94260 [facility] COUNT 6 [facility] COMPLETE INC INC AUTO&[place] [address] [facility] TROPONIN 6 [facility] QUANTITAT INC INC EVELIN CREATINE 66654 [facility] KINASE 6 [facility] [place] [address] [facility] THYROXINE 6 [facility] TOTAL INC INC INJECTION J0696 [facility]ICIAN SEJAL CEFTRIAXO S GROUP NE SODIUM PER 250 MG INJECTION J1040 REPLACED BY [facility] 5 PHYSICIAN SEJAL METHYLPRE S GROUP DNISOLONE ACETATE 80 MG THERAPEUT 09677 REPLACED BY [facility] IC 5 PHYSICIAN SEJAL PROPHYLAC S GROUP TIC/DX INJECTION SUBQ/IM RADEX 19648 [facility] [place] [facility] SHOULDER 5 RADIOLOGY RHO COMPLETE MINIMUM 2 VIEWS ARTHROSCO 67251 [facility] ARMS DON PY 5 [facility] SHOULDER SURG DEBRIDEME NT EXTENSIVE SINGLE 48895 [facility] YOEL ANT NERVE 5 ANESTHESI BLOCK A GROUP INJECTION PS ARM NERVE CLAVICULE 79747 [facility] AR[facility] CTOMY 5 [facility] PARTIAL ANES 23604 [facility] [facility] ANT ARTHRS 5 ANESTHESI HUMERAL A GROUP H/N PS STRNCLAV & SHOULDER NOS ARTHROSCO 65324 [facility] ARMS DON PY 5 [facility] SHOULDER W/[place]AC[place] [address] [facility], ALESHIA PAT SURG 5 [facility] PATHOLOGY GROSS&SEJAL ROSCOPIC EXAM DECALCIFI 45469 [facility], ALESHIA PAT CATION 5 LLC PROCEDURE ECG 17034 TIESHA UPTON UPTON TIESHA ROUTINE 5 MD ECG CONSULTIN W/LEAST G SRV 12 LDS I&R ONLY RADIOLOGI 55996 [facility] [place] [facility] C EXAM 5 RADIOLOGY RHO CHEST 2 VIEWS FRONTAL&L ATERAL OCCUPATIO 37505 [facility] NAL 5 [facility] THERAPY INC INC EVALUATIO N MRI ANY 19334 [facility] [place] KOSTELIC JT UPPER 5 RADIOLOGY PRINCE EXTREMITY W/O CONTRAST MATRL RADEX 36123 [facility] SHOULDER 5 [facility] MINIMUM [address] IN[address] [facility] [place] 5 PHYSICIAN SEJAL KETOROLAC S GROUP TROMETHAM INE PER [address] IN[address] [facility] [place] 5 PHYSICIAN SEJAL DEXAMETHO S GROUP SONE SODIUM PHOSPHATE [address] [facility] [place] IC 5 PHYSICIAN SEJAL PROPHYLAC S GROUP TIC/DX INJECTION SUBQ/IM THERAPEUT 78734 [facility] CHEUNG IC 5 [facility] TIC/DX INJECTION SUBQ/IM INJECTION J1885 [facility] KENNEDYYMAN 5 [facility] TROMETHAM INE PER [address] [facility] PETTEY BETAMETHA 5 PHYSICIAN JAM SONE S GROUP ACETATE & PHOSPHATE [address] [facility] PETTEFidelia TESIS 5 PHYSICIAN GRACIE ASPIR&/IN S GROUP J MAJOR JT/BURSA W/O US RADEX 05896 [facility] CELESTIN ALL SHOULDER 5 MEDICAL COMPLETE IMAGING MINIMUM 2 [place] [address] [facility] THYROID 5 [facility] STIMULATI INC INC NG HORMONE TSH COLLECTIO 43657 [facility] N VENOUS 5 [facility] BLOOD INC INC VENIPUNCT URE THERAPEUT 02380 REPLACED BY [facility] IC 5 PHYSICIAN SEJAL PROPHYLAC S GROUP TIC/DX INJECTION SUBQ/IM INJECTION J1040 [facility] 5 PHYSICIAN SEJAL METHYLPRE S GROUP DNISOLONE ACETATE 80 MG INJECTION J0696 REPLACED BY [facility] 5 PHYSICIAN SEJAL CEFTRIAXO S GROUP NE SODIUM PER 250 MG INJECTION A9576 [facility]ER 5 [facility] GADOTERID INC INC OL PROHANCE MULTIPACK PER ML MRI BRAIN 04633 [facility] BRAIN 5 MEDICAL MELVIN STEM W/O IMAGING W/CONTRAS ASS T MATERIAL BASIC 57863 [facility] METABOLIC 5 [facility] PANEL INC INC CALCIUM TOTAL CORTISOL 83081 [facility] TOTAL 5 [place] [address] [facility] PROLACTIN 5 [facility] INC INC GAMMAGLOB 46682 [facility] ULIN 5 [facility] IMMUNOGLO INC INC BULIN SUBCLASSE S COLLECTIO 86824 [facility] SHERMANON N VENOUS 5 [facility] [place]LOOD [place] [address] [facility] FREE 5 [facility] H[facility] [place] [address] [facility] THYROID 5 [facility] STIMULATI INC INC NG HORMONE TSH INCISION 08371 [facility] BAB & 4 DAMIAN DRAINAGE EMERGENCY ABSCESS PHYS COMPLICAT ED/MULTIP LE BLOOD 85767 [facility] PANDYA COUNT 4 [facility] BRANDY COMPLETE INC AUTO&[place] [address] [facility] HICKSA TESTOSTER 4 [facility] PAUL ONE TOTAL INC CYANOCOBA 75708 T[facility] PANDYA BETSY 4 [facility] VITAMIN INC B-12 [place] [address] [facility] THYROXINE 4 [facility] [place] [address] T[facility] THYROID 4 [facility] STIMULATI INC INC NG HORMONE TSH HEMOGLOBI 74203 [facility] N 4 [facility] GLYCOSYLA INC INC GRACE A1C COMPREHEN 76071 [facility] SIVE 4 [facility] METABOLIC INC INC PANEL THERAPEUT 96900 [facility] [place] IC 4 PHYSICIAN SEJAL PROPHYLAC S GROUP TIC/DX INJECTION SUBQ/IM URNLS DIP 65790 [facility] 4 [facility] STICK/TAB INC INC LET REAGENT AUTO MICROSCOP Y HEMOGLOBI 00458 [facility] N 4 [facility] GLYCOSYLA [place] [address] [facility] THYROID 4 [facility] STIMULATI INC INC NG HORMONE TSH COMPREHEN 85529 [facility] SIVE 4 [facility] [address] [facility] VITAMIN A 4 [facility] INC INC HEPATITIS 58103 [facility] A 4 [facility] [place] [address] [facility] THYROXINE 4 [facility] [place] [place] [address] [facility] MAGNESIUM 4 [facility] INC INC HEPATITIS 14417 T[facility] B CORE 4 [facility] ANTIBODY INC INC HBCAB TOTAL HEPATITIS 03603 [facility] Christine SURF 4 [facility] [place] [address] [facility] HEPATITIS 4 [facility] B INC INC SURFACE ANTIGEN BLOOD 44352 [facility] COUNT 4 [facility] COMPLETE INC INC AUTO&AUTO DIFRNTL WBC HEPATITIS 57978 [facility] C 4 [facility] ANTIBODY INC INC BLOOD 82888 [facility] COUNT 4 [facility] COMPLETE INC INC AUTO&AUTO DIFRNTL WBC COMPREHEN 04148 [facility] SIVE 4 [facility] METABOLIC INC INC PANEL 3D 23287 [facility] RENDERING 4 [facility] W/INTERP INC INC & [place] 3D 849[address] [place] RENDERING 4 MELVIN MELVIN W/INTERP& POSTPROC DIFF WORK STATION THERAPEUT 30265 [facility] [place] IC 4 PHYSICIAN SEJAL PROPHYLAC S GROUP TIC/DX INJECTION SUBQ/IM INJECTION J3420 [facility] 4 PHYSICIAN SEJAL S GROUP CYANOCOBA BETSY TO 1000 MCG RADIOLOGI 19646 [facility] [place] C EXAM 4 MEDICAL MELVIN CHEST 2 IMAGING VIEWS ASS FRONTAL&L ATERAL BLOOD 33536 [facility] COUNT 0 [facility] COMPLETE INC INC AUTO&[place] [address] [place] EFE SCROTUM & 0 MEDICAL SANGEETHA CONTENTS IMAGING ASS BASIC 47910 [facility] METABOLIC 0 [facility] PANEL INC INC CALCIUM TOTAL URNLS DIP 93509 [facility] 0 [facility] STICK/TAB INC [place] [address] [facility] INFUSION 9 [facility] THERAPY/P INC INC ROPHYLAXI S /DX 1ST TO 1 HR GENERAL 43565 [facility]ALTH 9 PHYSICIAN PHYSICIAN PANEL S LAB S LAB SEDIMENTA 82389 COMBINED COMBINED TION RATE 9 PHYSICIAN PHYSICIAN RBC S LAB S LAB NON-AUTOM ATED LIPID 01671 [facility] COMBINED PANEL 9 PHYSICIAN PHYSICIAN S LAB S LAB THYROID 25187 [facility] COMBINED HORM 9 PHYSICIAN PHYSICIAN UPTK/THYR S LAB S LAB OID HORMONE BINDING RATIO Encounters Encounter Start End Date Code Location Performer Type Date OFFICE 01690 GASTROENT CASE OUTPATIEN 7 7 EROLOGY T VISIT AND 25 HEPATOL [address]2917 [facility] OUTPATIEN 7 7 PHYSICIAN T VISIT S GROUP 15 MINUTES EMERGENCY 51201 [facility] 7 7 [facility] DEPARTMEN INC T VISIT LOW/MODER SEVERITY [facility] - 7 7 [facility] OUTPATIEN INC T OFFICE 83643 [facility] OUTPATIEN 7 7 PHYSICIAN T VISIT S GROUP [address]ES [address] [facility] OUTPATIEN 7 7 PHYSICIAN T VISIT S GROUP [address] [facility] OUTPATIEN 7 7 PHYSICIAN T VISIT S GROUP 25 MINUTES [facility]OSPITAL [facility] - 7 7 [facility] OUTPATIEN INC T OFFICE 72459 [facility] OUTPATIEN 7 7 PHYSICIAN T VISIT S GROUP 25 MINUTES [facility]OSPITAL [facility] - 7 7 [facility] OUTPATIEN INC T OFFICE 92329 [facility] FR[facility] OUTPATIEN 6 6 PHYSICIAN EUG T VISIT S GROUP 25 MINUTES [facility]OSPITAL [facility] - 6 6 [facility] OUTPATIEN INC T EMERGENCY 10158 GAIL YOUNG 6 6 [facility] T VISIT HIGH/URGE NT SEVERITY EMERGENCY 92875 [facility] 6 6 [facility] DEPARTMEN INC T VISIT LOW/MODER SEVERITY [facility]OSP[facility] - 6 6 [facility] OUTPATIEN INC T OFFICE 78[address] [facility] OUTPATIEN 6 6 PHYSICIAN SEJAL T VISIT S GROUP [address] [address] [facility] LEMUS OUTPATIEN 6 6 PHYSICIAN STONE T VISIT S GROUP PAShukri LARSON [address]ES [address] [facility] OUTPATIEN 6 6 PHYSICIAN SEJAL T VISIT S GROUP 10 MINUTES [facility]OSPITAL [facility] - 6 6 [facility] OUTPATIEN INC T OFFICE 34819 [facility] OUTPATIEN 6 6 PHYSICIAN SEJAL T VISIT S GROUP [address]ES [address] [facility] OUTPATIEN 5 5 PHYSICIAN SEJAL T VISIT S GROUP [address]ES [address] [facility] OUTPATIEN 5 5 PHYSICIAN SEJAL T VISIT S GROUP 10 MINUTES [facility] 5 5 [facility] - 5 5 [facility] 5 5 [facility] - 5 5 [facility] T OFF[facility] 65671 [facility] OUTPATIEN 5 5 PHYSICIAN SEJAL T VISIT S GROUP [address]ES [address] [facility] PETTEY OUTPATIEN 5 5 PHYSICIAN JAM T NEW 30 S GROUP MINUTES HOSPITAL [facility] - 5 5 [facility]EN [facility] T OFFICE 49363 [facility] OUTPATIEN 5 5 PHYSICIAN SEJAL T VISIT S GROUP [address]ES [address] [facility] [place] OUTPATIEN 5 5 PHYSICIAN SEJAL T VISIT S GROUP [address]ES [address] [facility] [place] OUTPATIEN 5 5 PHYSICIAN SEJAL T VISIT S GROUP [address]ES [address] [facility] [place] OUTPATIEN 5 5 PHYSICIAN JACQUELINE T VISIT S GROUP 15 MINUTES OFFICE 85396 [facility] MARTINES OUTPATIEN 5 5 MEDICAL L T VISIT SERV 25 FOUNDATIO MINUTES N [facility] T OFFICE [address]42 [facility] [place] OUTPATIEN 5 5 PHYSICIAN SEJAL T VISIT S GROUP 15 MINUTES [facility] T OFFICE 84732 [facility]TE[facility] MARTINES CONSULTAT 5 5 MEDICAL L ION SERV NEW/ESTAB FOUNDATIO PATIENT N 80 MIN [id number] 4 4 DAMIAN DEPARTMEN EMERGENCY T VISIT PHYS MODERATE SEVERITY OFFICE 89669 [facility] [place] OUTPATIEN 4 4 PHYSICIAN SEJAL T VISIT S GROUP 15 MINUTES [facility] INC T OFFICE 77496 [facility] [place] OUTPATIEN 4 4 PHYSICIAN SEJAL T VISIT S GROUP [address]ES [address] [facility] [place] OUTPATIEN 4 4 PHYSICIAN SEJAL T VISIT S GROUP 10 MINUTES OFFICE 82962 [facility] CONSULTAT 4 4 ION NEW/ESTAB PATIENT [address] [facility] [place] OUTPATIEN 4 4 PHYSICIAN SEJAL T VISIT S GROUP 15 MINUTES OFFICE 57288 [facility] [place] [facility] 4 4 SEJAL SEJAL T VISIT 15 MINUTES OFFICE 52331 [facility] [place] [facility] 4 4 SEJAL SEJAL T VISIT 15 MINUTES [facility] T OFFICE 12034 [facility] [place] [facility] 4 4 SEJAL SEJAL T VISIT 10 MINUTES [facility] T [facility] T OFFICE 26455 [facility] [place] [facility] 4 4 PHYSICIAN SEJAL T VISIT S GROUP 15 MINUTES [facility] OUTPATI[facility] INC T EMERGENCY 47385 [facility] 0 0 [facility] DEPARTMEN INC T VISIT HIGH/URGE NT SEVERITY EMERGENCY 86206 TEVIN LOVELACE DEPT 0 0 EMERGENCY SEJAL VISIT SERVICES HIGH SEVERITY& THREAT [facility] - 0 0 [facility] OUTPATIEN INC T EMERGENCY 12277 TEVIN LOVELACE, 9 9 EMERGENCY [facility] SERVICES T VISIT [facility]IGH/URGE ASSOCIATE NT S [facility] - 9 9 [facility] 41342 [facility] 9 9 [facility] T VISIT LOW/MODER SEVERITY
--- OUTSIDE RECORDS SUMMARY | 2016-11-25 13:40 | External Medical Summary Rpt ---
Author Author MAXIMUS Ondina, [employer] Organization [employer] Address Unknown Phone Unavailable Results Comprehensive metabolic 2000 panel in Serum or Plasma Observa Value Referen Units Interpr Notes Date tion ce etation Range Albumin/G 1.1 - 1.8 No Low No Gordon 3 lobulin informati informati 2017 1:42 [Mass on in on in PM ratio] in source source Serum or data data Plasma Albumin 3.4 - 5.0 gm/dL No No Gordon 3 [Mass/vol informati informati 2017 1:42 ume] in on in on in PM Serum or source source Plasma data data Alkaline 46 - 116 U/L High No Gordon 3 phosphata informati 2017 1:42 se on in PM [Enzymati source c data activity/ volume] in Serum or Plasma Bilirubin 0.2 - 1.0 mg/dL High No Gordon 3 .total informati 2017 1:42 [Mass/vol on in PM ume] in source Serum or data Plasma Urea 7 - 18 mg/dL No No Gordon 3 nitrogen informati informati 2017 1:42 [Mass/vol on in on in PM ume] in source source Serum or data data Plasma Calcium 8.5 - mg/dL Normal No Gordon 3 [Mass/vol 10.1 informati 2017 1:42 ume] in on in PM Serum or source Plasma data Chloride 98 - 107 mmoL/L Normal No Gordon 3 [Moles/vo informati 2017 1:42 lume] in on in PM Serum or source Plasma data Carbon 21.0 - mmoL/L Normal No Gordon 3 dioxide, 32.0 informati 2017 1:42 total on in PM [Moles/vo source lume] in data Serum or Plasma Creatinin 0.70 - mg/dL Normal No Gordon 3 e 1.30 informati 2017 1:42 [Mass/vol on in PM ume] in source Serum or data Plasma Creatinin 50 - 200 ML/MIN Normal No Gordon 3 e renal informati 2017 1:42 clearance on in PM source predicted data by Cockcroft -Gault formula Estimated >60 ML/MIN No REFERENCE Gordon 3 informati RANGE: 2017 1:42 glomerula on in >60 PM r source ML/MIN/1. filtratio data 73 SQUARE n rate METERSIf (GF this patient is -A merican, then multiply theresult by 1.210. Globulin 1.3 - 3.2 gm/dL High No Oct 3 [Mass/vol informati 2016 1:42 ume] in on in PM Serum source data Glucose 74 - 106 mg/dL High No Gordon 3 [Mass/vol informati 2016 1:42 ume] in on in PM Serum or source Plasma data Potassium 3.5 - 5.1 mmoL/L Normal No Oct 3 inform2016 1:42 [Moles/vo on in PM lume] in source Serum or data Plasma Sodium 136 - 145 mmoL/L Low No Gordon 3 [Moles/vo informati 2016 1:42 lume] in on in PM Serum or source Plasma data Aspartate 15 - 37 U/L High No Oct 3 alert informati 2016 1:42 aminotran on in PM sferase source [Enzymati data c activity/ volume] in Serum or Plasma Alanine 12 - 78 U/L High No Gordon 3 aminotran alert informati 2016 1:42 sferase on in PM [Enzymati source c data activity/ volume] in Serum or Plasma Protein 6.4 - 8.2 gm/dL Normal No Gordon 3 [Mass/vol informati 2016 1:42 ume] in on in PM Serum or source Plasma data CBC W Auto Differential panel in Blood Observa Value Referen Units Interpr Notes Date tion ce etation Range Basophils 0 - 0.2 K/MM3 Normal No Oct 3 inform2016 1:42 [#/volume on in PM ] in source Blood by data Automated count Basophils 0.1 - 2.0 % Normal No Gordon 3 /100 informati 2016 1:42 leukocyte on in PM s in source Blood by data Automated count Eosinophi 0.0 - 0.4 K/mm3 Normal No Oct 3 ls inform2016 1:42 [#/volume on in PM ] in source Blood by data Automated count Eosinophi 0.1 - % Normal No Oct 3 ls/100 12.0 inform2016 1:42 leukocyte on in PM s in source Blood by data Automated count Granulocy 1.3 - 8.0 K/mm3 Normal No Gordon 3 aby informati 2016 1:42 [#/volume on in PM ] in source Blood by data Automated count Granulocy 37.0 - % Normal No Gordon 3 aby/100 80.0 informati 2017 1:42 leukocyte on in PM s in source Blood by data Automated count Hematocri 42.0 - % High No Oct 3 t [Volume 52.0 informati 2016 1:42 on in PM Fraction] source of Blood data Hemoglobi 14.1 - g/dL Normal No Oct 3 n 18.0 informati 2016 1:42 [Mass/vol on in PM ume] in source Blood data Lymphocyt 0.7 - 4.5 K/mm3 Normal No Oct 3 es informati 2017 1:42 [#/volume on in PM ] in source Unspecifi data ed specimen by Automated count Lymphocyt 10 - 50 % Normal No Oct 3 es informati 2016 1:42 [#/volume on in PM ] in source Unspecifi data ed specimen by Automated count Erythrocy 27 - 31.2 pg Normal No Oct 3 te mean informati 2016 1:42 corpuscul on in PM ar source hemoglobi data n [Entitic mass] Erythrocy 31.8 - g/dl Low No Oct 3 te mean 35.4 informati 2017 1:42 corpuscul on in PM ar source hemoglobi data n concentra tion [Mass/vol ume] by Automated count Erythrocy 82.2 - fl Normal No Oct 3 te mean 97.8 informati 2016 1:42 corpuscul on in PM ar volume source [Entitic data volume] by Automated count Monocytes 0.1 - 1.0 K/mm3 Normal No Oct 3 informati 2016 1:42 [#/volume on in PM ] in source Blood by data Automated count Monocytes 1.7 - 9.3 % Normal No Gordon 3 /100 informati 2017 1:42 leukocyte on in PM s in source Blood by data Automated count Platelet 7.4 - fl Low No Gordon 3 mean 10.4 informati 2017 1:42 volume on in PM [Entitic source volume] data in Blood by Automated count Platelets 142 - 424 K/mm3 Normal No Gordon 3 informati 2017 1:42 [#/volume on in PM ] in source Blood data Erythrocy 4.6 - 6.2 M/mm3 Normal No Oct 3 aby informati 2016 1:42 [#/volume on in PM ] in source Amniotic data fluid Erythrocy 11.5 - % Normal No Oct 03 te 17.5 informati 2017 1:42 distribut on in PM ion width source [Entitic data volume] by Automated count Leukocyte 4.8 - K/MM3 No No Oct 3 s 10.8 informati informati 2017 1:42 [#/volume on in on in PM ] in source source Blood data data Iron and TIBC Observa Value Referen Units Interpr Notes Date tion ce etation Range Iron 250 - 450 ug/dL No No Oct 01 binding informati informati 2017 9:01 capacity on in on in PM [Mass/vol source source ume] in data data Serum or Plasma Iron 111 - 343 ug/dL No No Oct 01 binding informati informati 2017 9:01 capacity. on in on in PM unsaturat source source ed data data [Mass/vol ume] in Serum or Plasma Iron 38 - 169 ug/dL No No Oct 01 [Mass/vol informati informati 2017 9:01 ume] in on in on in PM Serum or source source Plasma data data Iron 15 - 55 % No Performed Oct 01 saturatio informati at: CB 2017 9:01 n [Mass] on in - [facility] PM in Serum source or Plasma data [address] [id number] [address] [place], [place] [id number] [employer] Sash Setter: Farhad Fields PhD, Phone: [phone] Bilirubin direct & total panel [Mass/volume] in Serum or Plasma Observa Value Referen Units Interpr Notes Date tion ce etation Range Bilirubin 0.0 - 0.2 mg/dL High No Oct 01 .direct informati 2017 7:55 [Mass/vol on in PM ume] in source Serum or data Plasma Bilirubin 0 - 0.9 mg/dL High No Oct 01 .indirect informati 2017 7:55 on in PM [Mass/vol source ume] in data Serum or Plasma Bilirubin 0.2 - 1.0 mg/dL High No Oct 01 .total informati 2017 7:55 [Mass/vol on in PM ume] in source Serum or data Plasma Amylase [Enzymatic activity/volume] in Serum or Plasma Observa Value Referen Units Interpr Notes Date tion ce etation Range Amylase 25 - 115 U/L Normal No Oct 01 [Enzymati informati 2017 7:55 c on in PM activity/ source volume] data in Serum or Plasma Lipase [Enzymatic activity/volume] in Serum or Plasma Observa Value Referen Units Interpr Notes Date tion ce etation Range Lipase 73 - 393 U/L Normal No Gordon 1 [Enzymati informati 2017 7:55 c on in PM activity/ source volume] data in Serum or Plasma Comprehensive metabolic 2000 panel in Serum or Plasma Observa Value Referen Units Interpr Notes Date tion ce etation Range Albumin/G 1.1 - 1.8 No Low No Gordon 1 lobulin informati informati 2017 7:55 [Mass on in on in PM ratio] in source source Serum or data data Plasma Albumin 3.4 - 5.0 gm/dL Normal No Gordon 1 [Mass/vol informati 2017 7:55 ume] in on in PM Serum or source Plasma data Alkaline 46 - 116 U/L High No Gordon 1 phosphata informati 2017 7:55 se on in PM [Enzymati source c data activity/ volume] in Serum or Plasma Bilirubin 0.2 - 1.0 mg/dL High No Gordon 1 .total informati 2017 7:55 [Mass/vol on in PM ume] in source Serum or data Plasma Urea 7 - 18 mg/dL Normal No Gordon 1 nitrogen informati 2017 7:55 [Mass/vol on in PM ume] in source Serum or data Plasma Calcium 8.5 - mg/dL Normal No Gordon 1 [Mass/vol 10.1 informati 2017 7:55 ume] in on in PM Serum or source Plasma data Chloride 98 - 107 mmoL/L Low No Gordon 1 [Moles/vo informati 2017 7:55 lume] in on in PM Serum or source Plasma data Carbon 21.0 - mmoL/L Normal No Gordon 1 dioxide, 32.0 informati 2017 7:55 total on in PM [Moles/vo source lume] in data Serum or Plasma Creatinin 0.70 - mg/dL Normal No Gordon 1 e 1.30 informati 2017 7:55 [Mass/vol on in PM ume] in source Serum or data Plasma Creatinin 50 - 200 ML/MIN Normal No Gordon 1 e renal informati 2017 7:55 clearance on in PM source predicted data by Cockcroft -Gault formula Estimated >60 ML/MIN No REFERENCE Gordon 1 informati RANGE: 2017 7:55 glomerula on in >60 PM r source ML/MIN/1. filtratio data 73 SQUARE n rate METERSIf (GF this patient is -A merican, then multiply theresult by 1.210. Globulin 1.3 - 3.2 gm/dL High No Gordon 1 [Mass/vol informati 2017 7:55 ume] in on in PM Serum source data Glucose 74 - 106 mg/dL High No Gordon 1 [Mass/vol informati 2017 7:55 ume] in on in PM Serum or source Plasma data Potassium 3.5 - 5.1 mmoL/L Normal ICTERIC Gordon 1 SPECIMEN 2017 7:55 [Moles/vo - PM lume] in POTASSIUM Serum or MAY BE Plasma SLIGHTLY FALSELYEL EVATED Sodium 136 - 145 mmoL/L Low No Gordon 1 [Moles/vo informati 2017 7:55 lume] in on in PM Serum or source Plasma data Aspartate 15 - 37 U/L High ICTERIC Gordon 1 alert SPECIMEN 2017 7:55 aminotran - AST MAY PM sferase BE [Enzymati SLIGHTLY c FALSELY activity/ ELEVATED volume] in Serum or Plasma Alanine 12 - 78 U/L High No Gordon 1 aminotran alert informati 2017 7:55 sferase on in PM [Enzymati source c data activity/ volume] in Serum or Plasma Protein 6.4 - 8.2 gm/dL Normal No Gordon 1 [Mass/vol informati 2017 7:55 ume] in on in PM Serum or source Plasma data CBC W Auto Differential panel in Blood Observa Value Referen Units Interpr Notes Date tion ce etation Range Basophils 0 - 0.2 K/MM3 Normal No Gordon 1 informati 2017 7:55 [#/volume on in PM ] in source Blood by data Automated count Basophils 0.1 - 2.0 % Normal No Gordon 1 /100 informati 2017 7:55 leukocyte on in PM s in source Blood by data Automated count Eosinophi 0.0 - 0.4 K/mm3 Normal No Gordon 1 ls informati 2017 7:55 [#/volume on in PM ] in source Blood by data Automated count Eosinophi 0.1 - % Normal No Gordon 1 ls/100 12.0 informati 2017 7:55 leukocyte on in PM s in source Blood by data Automated count Granulocy 1.3 - 8.0 K/mm3 Normal No Gordon 1 aby informati 2017 7:55 [#/volume on in PM ] in source Blood by data Automated count Granulocy 37.0 - % Normal No Oct 01 aby/100 80.0 informati 2017 7:55 leukocyte on in PM s in source Blood by data Automated count Hematocri 42.0 - % High No Oct 01 t [Volume 52.0 informati 2017 7:55 on in PM Fraction] source of Blood data Hemoglobi 14.1 - g/dL Normal No Oct 01 n 18.0 informati 2017 7:55 [Mass/vol on in PM ume] in source Blood data Lymphocyt 0.7 - 4.5 K/mm3 Normal No Oct 01 es informati 2017 7:55 [#/volume on in PM ] in source Unspecifi data ed specimen by Automated count Lymphocyt 10 - 50 % Normal No Oct 01 es informati 2017 7:55 [#/volume on in PM ] in source Unspecifi data ed specimen by Automated count Erythrocy 27 - 31.2 pg Normal No Oct 01 te mean informati 2016 7:55 corpuscul on in PM ar source hemoglobi data n [Entitic mass] Erythrocy 31.8 - g/dl Low No Oct 01 te mean 35.4 informati 2017 7:55 corpuscul on in PM ar source hemoglobi data n concentra tion [Mass/vol ume] by Automated count Erythrocy 82.2 - fl Normal No Oct 01 te mean 97.8 informati 2017 7:55 corpuscul on in PM ar volume source [Entitic data volume] by Automated count Monocytes 0.1 - 1.0 K/mm3 Normal No Oct 01 informati 2017 7:55 [#/volume on in PM ] in source Blood by data Automated count Monocytes 1.7 - 9.3 % Normal No Gordon 1 /100 informati 2017 7:55 leukocyte on in PM s in source Blood by data Automated count Platelet 7.4 - fl Low No Oct 01 mean 10.4 informati 2017 7:55 volume on in PM [Entitic source volume] data in Blood by Automated count Platelets 142 - 424 K/mm3 Normal No Oct 01 informati 2017 7:55 [#/volume on in PM ] in source Blood data Erythrocy 4.6 - 6.2 M/mm3 Normal No Oct 01 aby informati 2017 7:55 [#/volume on in PM ] in source Amniotic data fluid Erythrocy 11.5 - % Normal No Oct 1 te 17.5 informati 2017 7:55 distribut on in PM ion width source [Entitic data volume] by Automated count Leukocyte 4.8 - K/MM3 High No Gordon 1 s 10.8 informati 2017 7:55 [#/volume on in PM ] in source Blood data Urinalysis dipstick W Reflex Microscopic panel in Urine Observa Value Referen Units Interpr Notes Date tion ce etation Range Appeara CLEAR CLEAR No No No Oct 01 nce of informa informa informa 2017 Urine tion in tion in tion in 7:55 PM source source source data data data Bacteri 1+ O No No No Oct 01 a informa informa informa 2016 [Presen tion in tion in tion in 7:55 PM ce] in source source source Urine data data data sedimen t by Light microsc opy Bilirub 3+ NEG No Abnorma BILIRUB Oct 01 in informa l IN 2017 [Presen tion in CONFIRM 7:55 PM ce] in source ED WITH Urine data by Test ICTOTES strip T Erythro TRACE-I NEG No No No Oct 01 cytes NTACT informa informa informa 2016 [Presen tion in tion in tion in 7:55 PM ce] in source source source Urine data data data Color KEIKO YELLOW No No No Oct 01 of informa informa informa 2017 Urine tion in tion in tion in 7:55 PM source source source data data data Glucose NEG No High No Oct 01 [Mass/vol informati informati 2017 7:55 ume] in on in on in PM Urine by source source Test data data strip Ketones NEGATIV NEG mg/dL No No Oct 01 E informa informa 2017 [Presen tion in tion in 7:55 PM ce] in source source Urine data data by Automat ed test strip Mucus NEGATIV NEG No No No Oct 01 [Presen E informa informa informa 2016 ce] in tion in tion in tion in 7:55 PM Urine source source source sedimen data data data t by Light microsc opy Nitrite NEGATIV NEG No No No Oct 01 E informa informa informa 2017 [Presen tion in tion in tion in 7:55 PM ce] in source source source Urine data data data by Test strip pH of 5.0 - 8.5 No Normal No Gordon 1 Urine informati informati 2017 7:55 on in on in PM source source data data Protein NEG mg/dL High No Oct 01 [Mass/vol informati 2017 7:55 ume] in on in PM Urine by source Automated data test strip Specific 1.005 - No Normal No Oct 01 gravity 1.030 informati informati 2017 7:55 of Urine on in on in PM source source data data Epithel OCC OCC #/hpf No No Oct 01 ial informa informa 2017 cells.s tion in tion in 7:55 PM quamous source source data data [Presen ce] in Urine sedimen t by Microsc opy high power field Urobili >=8.0 NEG E.U./dL Abnorma No Oct 01 nogen l informa 2016 [Presen tion in 7:55 PM ce] in source Urine data by Test strip Leukocyte O wbc/hpf No No Oct 01 s informati informati 2017 7:55 [#/volume on in on in PM ] in source source Urine data data Urinalysis dipstick W Reflex Microscopic panel in Urine Observa Value Referen Units Interpr Notes Date tion ce etation Range Appeara CLEAR CLEAR No No No Oct 01 nce of informa informa informa 2017 Urine tion in tion in tion in 7:55 PM source source source data data data Bilirub 3+ NEG No Abnorma BILIRUB Gordon 1 in informa l IN 2017 [Presen tion in CONFIRM 7:55 PM ce] in source ED WITH Urine data by Test ICTOTES strip T Erythro TRACE-I NEG No No No Oct 01 cytes NTACT informa informa informa 2017 [Presen tion in tion in tion in 7:55 PM ce] in source source source Urine data data data Color KEIKO YELLOW No No No Oct 01 of informa informa informa 2017 Urine tion in tion in tion in 7:55 PM source source source data data data Glucose NEG No High No Oct 01 [Mass/vol informati informati 2017 7:55 ume] in on in on in PM Urine by source source Test data data strip Ketones NEGATIV NEG mg/dL No No Oct 01 E informa informa 2017 [Presen tion in tion in 7:55 PM ce] in source source Urine data data by Automat ed test strip Mucus NEGATIV NEG No No No Oct 01 [Presen E informa informa informa 2016 ce] in tion in tion in tion in 7:55 PM Urine source source source sedimen data data data t by Light microsc opy Nitrite NEGATIV NEG No No No Gordon E informa informa informa 2016 [Presen tion in tion in tion in 7:55 PM ce] in source source source Urine data data data by Test strip pH of 5.0 - 8.5 No Normal No Gordon 1 Urine informati informati 2017 7:55 on in on in PM source source data data Protein NEG mg/dL High No Gordon 1 [Mass/vol informati 2016 7:55 ume] in on in PM Urine by source Automated data test strip Specific 1.005 - No Normal No Gordon gravity 1.030 informati informati 2016 7:55 of Urine on in on in PM source source data data Urobili >=8.0 NEG E.U./dL Abnorma No Oct 01 nogen l informa 2016 [Presen tion in 7:55 PM ce] in source Urine data by Test strip Drugs identified in Urine by Screen method Observa Value Referen Units Interpr Notes Date tion ce etation Range Positive urine drug screen samples are stored for 7 days. Contact the Lab if confirmation of positives is needed. Ampheta NEGATIV <1000 ng/mL No No Oct 01 mine E informa informa 2016 [Presen tion in tion in 7:55 PM ce] in source source Urine data data by Screen method Barbitura <200 ng/mL No No Gordon 1 aby informati informati 2017 7:55 [Mass/vol on in on in PM ume] in source source Urine by data data Screen method Benzodiaz 200 ng/mL ng/mL No No Gordon 1 epines informati informati 2017 7:55 [Mass/vol on in on in PM ume] in source source Serum or data data Plasma by Screen method Cocaine <300 ng/g High This is Gordon 1 [Mass/vol an 2016 7:55 ume] in UNCONFIRM PM Unspecifi ED ed result. specimen This result is for medicalpu rposes and/or treatment only. Methadone <300 ng/mL No No Gordon 1 informati informati 2017 7:55 [Mass/vol on in on in PM ume] in source source Unspecifi data data ed specimen Opiates <300 ng/mL No No Gordon 1 [Mass/vol informati informati 2017 7:55 ume] in on in on in PM Unspecifi source source ed data data specimen Phencycli <25 ng/mL No No Gordon 1 dine informati informati 2017 7:55 [Mass/vol on in on in PM ume] in source source Unspecifi data data ed specimen 11-Hydr NEGATIV <50 ng/mL No No Oct 01 oxy E informa informa 2017 delta-9 tion in tion in 7:55 PM source source tetrahy data data drocann abinol [Presen ce] in Unspeci fied specime n
--- OUTSIDE RECORDS SUMMARY | 2016-11-25 13:40 | External Medical Summary Rpt ---
[...] PM in Serum source or Plasma data [address] [address] [address] [place], [place] [id number] Lane Marker Installer: Farhad Fields PhD, Phone: [phone] Bilirubin direct & total panel [Mass/volume] [...]
--- OUTSIDE RECORDS SUMMARY | 2016-11-25 13:40 | External Medical Summary Rpt ---
Demographics Preferred Language Dutch Marital Status Unknown Yarsani Affiliation Unknown Race Unknown Ethnic Group Unknown Author Author , WIN STROUD Address Unknown Phone Immunization Unable to retrieve immunization data due to connection failure with Immunization Registry. Please try again later.
--- OUTSIDE RECORDS SUMMARY | 2016-11-25 13:40 | External Medical Summary Rpt ---
Demographics Preferred Language Bangladeshi Marital Status Unknown Yazidism Affiliation Unknown Race Unknown Ethnic Group Unknown Author Author , WIN STROUD Address Unknown Phone Immunization Unable to retrieve immunization data due to connection failure with Immunization Registry. Please try again later.
== END 2016-11-25 13:38 | disposition home or self-care (01) ==
LOC: ER 13:00 → UTC 13:07
DX: J40 Bronchitis, not specified as acute or chronic (principal); Z72.0 Tobacco use; E11.8 Type 2 diabetes mellitus with unspecified complications; Z79.4 Long term (current) use of insulin

== ENCOUNTER → 2016-12-07 | Outpatient (CLI) | payer MEDICAID ==
[~2016-12-07] MED LIST changes: +ZITHROMAX Z PA250 MG PO
[2016-12-07 20:31] LABS: BUN 9 mg/dL (7-18)
[2016-12-07 20:35] LABS: GFR (ESTIMATED) 104 ML/MIN (>60)
[2016-12-09 09:38] LABS: PSA, Free 0.14 ng/mL; Prostate Specific Ag 0.7 ng/mL (0.0-4.0)
== END ==
LOC: LAB 18:01
PROVIDERS: Emergency Medicine
DX: E11.9 Type 2 diabetes mellitus without complications (principal)

== ENCOUNTER 2017-03-09 17:04 | Emergency (ER) | payer MEDICAID ==
[~2017-03-09] VITALS: Ht 170.2 cm; Wt 86.2 kg
--- OUTSIDE RECORDS SUMMARY | 2017-03-09 17:13 | External Medical Summary Rpt | CCD ---
Author Author , MAXIMUS STROUD Address Unknown Phone [email or web address] Name Relationship Address Phone JUANITA, Next Of Kin IVAN [address], [phone] [place] [address] Purpose Continuity of Care Document - 02-27-2013 through 2016 Problems Code Diagnosis DOS Provider Status R10.9 UNSPECIFIED 10-26-2016 ABDOMINAL PAIN B19.10 UNSPECIFIED 10-20-2016 VIRAL HEPATITIS B WITHOUT HEPATIC COMA Z11.4 ENCOUNTER 10-20-2016 FOR SCREENING FOR HUMAN IMMUNODEFIC IENCY VIRUS [HIV] K75.9 INFLAMMATOR Y LIVER DISEASE, UNSPECIFIED L02.91 CUTANEOUS ABSCESS, UNSPECIFIED M75.81 OTHER SHOULDER LESIONS, RIGHT SHOULDER R17 UNSPECIFIED JAUNDICE R53.1 WEAKNESS Allergies, Adverse Reactions, Alerts Type Drug Allergy Adverse Reaction to Substance Substance Reaction Severity Codeine VOMITING Mild Vital Signs 02-27-2013 10:56 Name Value Interpretat [...] Order Detail nces retati t Range on Hemoglobin A1c in Blood (12-07-2016 16:30) Hemoglo 9.5 % 0.0% High complet bin A1c 017 - ed in 16:30 7.0% Blood Influenza virus A+B Ag [Presence] in Unspecified specimen (11-25-2016 13:26) Influen NOT NOT complet za 017 DETECTE DETECTD ed virus A 13:26 D Ag [Presen ce] in Unspeci fied specime n INFLUEN NOT NOT complet ZA B 017 DETECTE DETECTD ed ANTIGEN 13:26 D Urinalysis dipstick W Reflex Microscopic panel in [...] [Presen ce] in Unspeci fied specime n Encounters Encounter Start End Date Code Location Performer Type Date Emergency CAMILA Billingsley (ER) 3 08:45 3 11:03 [facility] Ashish Munoz
--- OUTSIDE RECORDS SUMMARY | 2017-03-09 17:13 | External Medical Summary Rpt | CCD ---
Author Author , MAXIMUS STROUD Address Unknown Phone [email or web address] Support Name Relationship Address Phone JUANITA, Next Of Kin IVAN [address], [phone] [place] [address] Purpose Continuity of Care Document - 02-27-2013 [...] CAMILA Billingsley (ER) 3 08:45 3 11:03 [facility] Ashish Munoz
--- OUTSIDE RECORDS SUMMARY | 2017-03-09 17:14 | External Medical Summary Rpt | CCD ---
Author Author [employer] Organization [employer] Address Unknown Phone Unavailable Purpose Continuity of Care Document - through 2016
--- OUTSIDE RECORDS SUMMARY | 2017-03-09 17:14 | External Medical Summary Rpt | CCD ---
Demographics Preferred Language Zimbabwean Marital Status Unknown Hoahaoism Affiliation Unknown Race Unknown Ethnic Group Unknown Author Author , WIN Organization WIN Address Unknown Phone [email or web address] Immunization Name Date Rout CVX Reac Dose Comm Prov Is Faci e tion ent ider Refu lity Give sed n Td 03-0 9 999 Hist H149 No H149 (keyona 6-19 [facility] lt), 97 al Info adso rmat rbed ion - Sour ce Unsp ecif ied
--- OUTSIDE RECORDS SUMMARY | 2017-03-09 17:14 | External Medical Summary Rpt | CCD ---
Demographics Preferred Language Citizen Of [place] Marital Status Unknown Orthodox Affiliation Unknown Race Unknown Ethnic Group Unknown Author Author , WIN Organization WIN Address Unknown Phone [email or web address] Immunization Name Date Rout CVX Reac Dose Comm Prov Is Faci e tion ent ider Refu lity Give sed n Td 03-0 9 999 Hist H149 No H149 (keyona 6-19 [facility] lt), 97 al Info adso rmat rbed ion - Sour ce Unsp ecif ied
--- OUTSIDE RECORDS SUMMARY | 2017-03-09 17:15 | External Medical Summary Rpt ---
Author Author [employer] On[employer], [employer] Organization [employer] Address Unknown Phone Unavailable Results PSA Total+% Free Observa Value Referen Units Interpr Notes Date tion ce etation Range Prostate N/A ng/mL No Rafael Dec 07 Specific informati ECLIA 2016 4:30 Ag Free on in methodolo PM [Mass/vol source gy. ume] in data Serum or Plasma Prostate . % No The table Dec 07 Specific informati below 2017 4:30 Ag on in lists the PM Free/Pros source andrew data probabili specific ty of Ag.total prostate in Serum cancer or Plasma formen with non-suspi cious JOSE results and total PSA between4 and 10 ng/mL, by patient age (Mary Ann et al, UMESH 1998,279: 1542).% Free PSA 50-64 yr 65-75 yr0.00-10 .00% 56% 55%10.01- 15.00% 24% 35%15.01- 20.00% 17% 23%20.01- 25.00% 10% 20%>25.00 % 5% 9%Please note: Mary Ann et al did not make specificr ecommenda tions regarding the use ofpercent free PSA for any other populatio nof men.Perfo rmed at: - [facility] [address] [address] [place], [place] [id number] [employer] Drier Helper: Farhad Fields PhD, Phone: [phone] Prostate 0.0 - 4.0 ng/mL No Rafael Dec 07 specific informati ECLIA 2016 4:30 Ag on in methodolo PM [Mass/vol source gy.Accord ume] in data ing to Serum or the Plasma [facility] on, Serum PSAshould decrease and remain at undetecta ble levels afterradi ирина prostatec ileana. The AUA defines biochemic alrecurre nce as an initial PSA value 0.2 ng/mL or greaterfo llowed by a subsequen t confirmat ory PSA value 0.2 ng/mLor greater. Values obtained with different assay methods orkits cannot be used interchan geably. Results cannot beinterpr eted as absolute evidence of the presence or absenceof malignant disease. Basic metabolic panel in Blood Observa Value Referen Units Interpr Notes Date tion ce etation Range Urea 7 - 18 mg/dL Normal No Dec 07 nitrogen informati 2016 4:30 [Mass/vol on in PM ume] in source Serum or data Plasma Calcium 8.5 - mg/dL Normal No Dec 07 [Mass/vol 10.1 informati 2016 4:30 ume] in on in PM Serum or source Plasma data Chloride 98 - 107 mmoL/L Low No Dec 07 [Moles/vo informati 2016 4:30 lume] in on in PM Serum or source Plasma data Carbon 21.0 - mmoL/L Normal No Dec 07 dioxide, 32.0 informati 2016 4:30 total on in PM [Moles/vo source lume] in data Serum or Plasma Creatinin 0.70 - mg/dL Normal No Dec 07 e 1.30 informati 2016 4:30 [Mass/vol on in PM ume] in source Serum or data Plasma Estimated >60 ML/MIN No REFERENCE Dec 07 informati RANGE: 2017 4:30 glomerula on in >60 PM r source ML/MIN/1. filtratio data 73 SQUARE n rate METERSIf (GF this patient is -A merican, then multiply theresult by 1.210. Glucose 74 - 106 mg/dL High No Dec 07 [Mass/vol informati 2016 4:30 ume] in on in PM Serum or source Plasma data Potassium 3.5 - 5.1 mmoL/L Normal No Dec 07 informati 2016 4:30 [Moles/vo on in PM lume] in source Serum or data Plasma Sodium 136 - 145 mmoL/L Low No Dec 07 [Moles/vo informati 2016 4:30 lume] in on in PM Serum or source Plasma data Hemoglobin A1c in Blood Observa Value Referen Units Interpr Notes Date tion ce etation Range Hemoglo 9.5 0.0 - % High < 6% Dec 07 bin A1c 7.0 NON-EDMUNDO 2017 in BETIC 4:30 PM Blood LEVEL< 7% CONTROL LED DIABETI C LEVEL> 8% POORLY CONTROL LED DIABETI C LEVEL Influenza virus A+B Ag [Presence] in Unspecified specimen Observa Value Referen Units Interpr Notes Date tion ce etation Range Influen NOT NOT No No No Nov 25 za DETECTE DETECTD informa informa informa 2017 virus A D tion in tion in tion in 1:26 PM Ag source source source [Presen data data data ce] in Unspeci fied specime n INFLUEN NOT NOT No No LOT # Nov 25 ZA B DETECTE DETECTD informa informa [id number] 2017 ANTIGEN D tion in tion in 1:26 PM source source [id number] data data 0 EXP DATE Comprehensive metabolic 2000 panel in Serum or [...] Creatinin 50 - 200 ML/MIN Normal No Oct 3 e renal informati 2017 1:42 clearance [...] Glucose 74 - 106 mg/dL High No Oct 3 [Mass/vol informati 2016 1:42 ume] in on in PM Serum or source Plasma data Potassium 3.5 - 5.1 mmoL/L Normal No Oct 3 inform2016 1:42 [Moles/vo on in PM lume] in source Serum or data Plasma Sodium 136 - 145 mmoL/L Low No Oct 3 [Moles/vo informati 2016 1:42 lume] in [...] Protein 6.4 - 8.2 gm/dL Normal No Oct 3 [Mass/vol informati 2016 1:42 [...] Eosinophi 0.1 - % Normal No Gordon 3 ls/100 12.0 informati 2016 1:42 leukocyte on in PM s in source Blood by data Automated count Granulocy 1.3 - 8.0 K/mm3 Normal No Gordon 3 aby informati 2016 1:42 [#/volume on in PM ] in source Blood by data Automated count Granulocy 37.0 - % Normal No Gordon 3 aby/100 80.0 informati 2016 1:42 leukocyte on in PM [...] K/mm3 Normal No Oct 3 es informati 2016 1:42 [#/volume on in PM ] in source Unspecifi data ed specimen by Automated count Lymphocyt 10 - 50 % Normal No Oct 3 es informati 2016 1:42 [#/volume on in PM ] in source Unspecifi data ed specimen by Automated count Erythrocy 27 - 31.2 pg Normal No Gordon 3 te mean informati 2016 1:42 corpuscul on in PM ar source hemoglobi data n [Entitic mass] Erythrocy 31.8 - g/dl Low No Oct 3 te mean 35.4 informati 2016 1:42 corpuscul on in PM ar source hemoglobi data n concentra tion [Mass/vol ume] by Automated count Erythrocy 82.2 - fl Normal No Oct 3 te mean 97.8 informati 2016 1:42 corpuscul on in PM ar volume source [Entitic data volume] by Automated count Monocytes 0.1 - 1.0 K/mm3 Normal No Gordon 3 informati 2017 1:42 [#/volume on in PM ] in source Blood by data Automated count Monocytes 1.7 - 9.3 % Normal No Gordon 3 /100 informati 2017 1:42 leukocyte on in PM s in source Blood by data Automated count Platelet 7.4 - fl Low No Gordon 3 mean 10.4 informati 2016 1:42 volume on in PM [Entitic source volume] data in Blood by Automated count Platelets 142 - 424 K/mm3 Normal No Gordon 3 informati 2016 1:42 [#/volume on in PM ] in source Blood data Erythrocy 4.6 - 6.2 M/mm3 Normal No Oct 3 aby informati 2016 1:42 [#/volume on in PM ] in source Amniotic data fluid Erythrocy 11.5 - % Normal No Oct 3 te 17.5 informati 2017 1:42 distribut on in PM ion width source [Entitic data volume] by Automated count Leukocyte 4.8 - K/MM3 No No Oct 03 s 10.8 informati informati 2016 1:42 [#/volume on in on in PM ] in source source Blood data data Iron and TIBC Observa Value Referen Units Interpr Notes Date tion ce etation Range Iron 250 - 450 ug/dL No No Oct 01 binding informati informati 2016 9:01 capacity on in on in PM [...] PM in Serum source or Plasma data [place] [address] [address] [place] [id number] [employer] D[employer] Helper: Farhad Fields PhD, Phone: [phone] Bilirubin direct & total panel [Mass/volume] in Serum or Plasma Observa Value Referen Units Interpr Notes Date tion ce etation Range Bilirubin 0.0 - 0.2 mg/dL High No Oct 1 .direct informati 2017 7:55 [Mass/vol on in PM ume] in source Serum or data Plasma Bilirubin 0 - 0.9 mg/dL High No Oct 1 .indirect informati 2017 7:55 on in PM [Mass/vol source ume] in data Serum or Plasma Bilirubin 0.2 - 1.0 mg/dL High No Oct 1 .total informati 2017 7:55 [Mass/vol on in PM ume] in source Serum or data Plasma Amylase [Enzymatic activity/volume] in Serum or Plasma Observa Value Referen Units Interpr Notes Date tion ce etation Range Amylase 25 - 115 U/L Normal No Gordon 1 [Enzymati informati [...] -Gault formula Estimated >60 ML/MIN No REFERENCE Oct 01 informati RANGE: 2017 7:55 glomerula on in >60 PM r source ML/MIN/1. filtratio data 73 SQUARE n rate METERSIf (GF this patient is -A merican, then multiply theresult by 1.210. Globulin 1.3 - 3.2 gm/dL High No Oct 01 [Mass/vol informati 2017 7:55 ume] in on in PM Serum source data Glucose 74 - 106 mg/dL High No Gordon 1 [Mass/vol informati 2017 7:55 ume] in on in PM Serum or source Plasma data Potassium 3.5 - 5.1 mmoL/L Normal ICTERIC Oct 01 SPECIMEN 2017 7:55 [Moles/vo - PM lume] in POTASSIUM Serum or MAY BE Plasma SLIGHTLY FALSELYEL EVATED Sodium 136 - 145 mmoL/L Low No Gordon 1 [Moles/vo informati 2017 7:55 lume] in on in PM Serum or source Plasma data Aspartate 15 - 37 U/L High ICTERIC Oct 01 alert SPECIMEN 2017 7:55 aminotran - AST [...] Basophils 0.1 - 2.0 % Normal No Oct 01 informati 2017 7:55 leukocyte on in PM s in source Blood by data Automated count Eosinophi 0.0 - 0.4 K/mm3 Normal No Oct 01 ls informati 2017 7:55 [#/volume on in PM ] in source Blood by data Automated count Eosinophi 0.1 - % Normal No Oct 01 ls/100 12.0 informati 2017 7:55 leukocyte on in PM s in source Blood by data Automated count Granulocy 1.3 - 8.0 K/mm3 Normal No Gordon 1 aby informati 2017 7:55 [#/volume on in PM ] in source Blood by data Automated count Granulocy 37.0 - % Normal No Gordon 1 aby/100 80.0 informati 2017 7:55 leukocyte on in PM s in source Blood by data Automated count Hematocri 42.0 - % High No Oct 01 t [Volume 52.0 informati 2017 7:55 on in PM Fraction] source of Blood data Hemoglobi 14.1 - g/dL Normal No Gordon 1 n 18.0 informati 2017 7:55 [Mass/vol on [...] Erythrocy 27 - 31.2 pg Normal No Gordon 1 te mean informati 2017 7:55 corpuscul on in PM [...] Monocytes 0.1 - 1.0 K/mm3 Normal No Gordon 1 informati 2017 7:55 [...] 142 - 424 K/mm3 Normal No Gordon 1 informati 2017 7:55 [#/volume on in PM ] in source Blood data Erythrocy 4.6 - 6.2 M/mm3 Normal No Gordon 1 aby informati 2017 7:55 [#/volume on in PM ] in source Amniotic data fluid Erythrocy 11.5 - % Normal No Gordon 1 te 17.5 informati 2017 7:55 distribut [...] Range Appeara CLEAR CLEAR No No No Gordon 1 nce of informa informa informa 2017 Urine [...] opy Bilirub 3+ NEG No Abnorma BILIRUB Gordon [...] data Color KEIKO YELLOW No No No Gordon 1 of informa informa informa 2017 Urine tion in tion in tion in 7:55 PM source source source data data data Glucose NEG No High No Gordon 1 [Mass/vol informati informati 2017 7:55 ume] in on in on in PM Urine by source source Test data data strip Ketones NEGATIV NEG mg/dL No No Gordon 1 E informa informa 2017 [Presen tion in tion in 7:55 PM ce] in source source Urine data data by Automat ed test strip Mucus NEGATIV NEG No No No Gordon 1 [Presen E informa informa informa 2016 ce] in tion in tion in tion in 7:55 PM Urine source source source sedimen data data data t by Light microsc opy Nitrite NEGATIV NEG No No No Oct 01 E informa informa informa 2016 [Presen tion in tion in tion in 7:55 PM ce] in source source source Urine data data data by Test strip pH of 5.0 - 8.5 No Normal No Gordon Urine informati informati 2017 7:55 on in [...] Test strip Leukocyte O wbc/hpf No No Gordon 1 s informati informati 2017 7:55 [#/volume on [...] data Bilirub 3+ NEG No Abnorma BILIRUB Oct [...] strip Mucus NEGATIV NEG No No No Gordon [Presen E informa informa informa 2016 ce] in tion in tion in tion in 7:55 PM Urine source source source sedimen data data data t by Light microsc opy Nitrite NEGATIV NEG No No No Oct 01 E informa informa informa 2016 [Presen tion in tion in tion in 7:55 PM ce] in source source source Urine data data data by Test strip pH of 5.0 - 8.5 No Normal No Gordon Urine informati informati 2017 7:55 on in [...] specimen 11-Hydr NEGATIV <50 ng/mL No No Gordon 1 oxy E informa informa 2017 delta-9 tion in tion in 7:55 PM source source tetrahy data data drocann abinol [Presen ce] in Unspeci fied specime n
--- OUTSIDE RECORDS SUMMARY | 2017-03-09 17:15 | External Medical Summary Rpt ---
[...] other populatio nof men.Perfo rmed at: - [facility] [address] [place], [place] [id number] [employer] Supervisor: Farhad Fields PhD, Phone: [phone] Prostate 0.0 - 4.0 ng/mL No Rafael Dec 07 specific informati ECLIA 2016 4:30 Ag on in methodolo PM [Mass/vol source gy.Accord ume] in data ing to Serum or the Plasma [facility], Serum PSAshould decrease [...] 25 ZA B DETECTE DETECTD informa informa [id number] 2017 ANTIGEN D tion in tion in 1:26 PM source source [id number] data data 0 EXP DATE Comprehensive metabolic [...] PM in Serum source or Plasma data [place] [address] [place] [id number] [employer] Supervisor: Farhad Fields PhD, Phone: [phone] Bilirubin direct & total panel [Mass/volume] [...]
--- NOTE | 2017-03-09 17:59 | Urgent Treatment Center Report ---
History of Present Issue Date/Time Seen by Provider 03/09/17 1386 Visit Reason Pt arrived:Walked Presenting Problem:COMPLAINS OF SINUS PRESSURE AND DRAINAGE X 2 WEEKS Location if Accident: Onset of symptoms date/time:/ or onset unknown for:MEDICAL HX UNKNOWN Have you (or family members/close friends) recently traveled outside the [place]? N If Yes, where/when: Have you had exposure to infectious disease within the past month? TB? Other? Specify: c/o "I know a sinus infection. I get one like this every year." Sinus pressure, especially in forehead, with rhinorrhea and nasal congestion. PND at times. Denies sore throat or cough. Hasn't taken or tried anything for symptoms. Talked to someone else w/ same symptoms who got a shot and felt better the next day. Wants an injection. Hx DM. FSBS "slightly higher" last week. Avg currently 160- 170. Source patient Exam Limitations no limitations ALLERGIES Coded Allergies: codeine (NA-NAUSEA 10/01/16) Home Medications Reported Medications LISINOPRIL (Lisinopril) 10 MG PO DAILY Levothyroxine Sodium 0.15 MG PO DAILY #30 INSUL REG 30%ISOPHAN 70% HUMAN (Humulin 70-30 Vial) 14 UNITS SC BID #10 History Medical History General CAD? No Angina: No MA: No Hypertension? Yes Hyperlipidemia? Yes CHF? No DVT? No PE? No COPD? No Asthma? No Anemia? No GERD? No Gastric ulcers? No GI Bleed? No Hernia? No Thyroid Problems? No Hypothyroidism? No CVA? No Seizures? Yes Diabetes? Yes Insulin Dependent: Yes Insulin Pump: No Home FSBS? Yes Renal Insuffiency? No UTI? No Stones? No BPH? No GB Disease: No Nephritic Syndrome? No Asplenia? No Hepatitis? No Sickle Cell Disease? No Arthritis? No Migraines? No Cataracts? No Glaucoma? No MRSA? No HIV? No TB? No Anxiety? No Depression? No Cancer? No More? Yes Additional hx: FORMER DRUG AND ALCOHOL USE Immunization HX Ped.Immunizations UTD No DT/Tetanus > 10 YRS Surgical Hx Previous Surgery?Y L SHOULDER ROTATOR CUFF Family History Family HX Diabetes No CAD No Hypertension No Hyperlipidemia No Cancer Yes TB No Social History Smoking Hx Smoker: Current Every Day Smoker Tobacco: Yes Type Cigarettes Packs/day < 1 Pack Alcohol Alcohol: No Review of Systems All Other Systems Reviewed and Negative Constitutional see HPI, denies chills, denies fever, denies malaise, denies weakness Eyes denies drainage, denies pain, denies photophobia, denies vision change ENT see HPI. denies: ear pain ("just fullness"), ear discharge, throat swelling. Respiratory see HPI, denies shortness of breath Cardiovascular denies chest pain Gastrointestinal denies no symptoms reported Musculoskeletal denies joint pain, denies neck pain Skin denies rash Psychiatric/Neurological denies other (dizziness) Physical Exam Vital Signs Vital Signs Date Time Temp Pulse Resp B/P Pulse O2 O2 Flow FiO2 Ox Delivery Rate 03/09 182 97.9 72 20 111/64 97 03/09 1718 97.9 72 20 111/ 97 General Appearance normal appearance, no apparent distress Eye Exam - bilateral eye normal exam Ear, Nose, Throat shannon EAC and TMs normal, nasal congestion, normal pharynx, moderate shannon frontal sinus tenderness, no maxillary tenderness Neck non-tender, supple Respiratory Status No: respiratory distress, productive cough, non productive cough. Lung Sounds anterior: lungs clear. posterior: lungs clear. bilateral: lungs clear. Cardiovascular regular rate/rhythm, no peripheral edema, no murmur Neurologic alert, oriented x 3 Mental status normal mood/affect Skin normal color, warm/dry Lymphatic no adenopathy Medical Decision Making LABS/Meds/Orders Pt receiving controlled substance in ED? No Results/Orders Current Medication Orders Sig/Cody Start time Last Medication Dose Route Stop Time Status Admin Ceftriaxone Sodium 1 GM ONCE ONE 03/09 1815 DC 03/09 IM 03/09 Lidocaine HCl 0 ONCE ONE 03/09 1815 DC 03/09 IM 03/09 Ceftriaxone Sodium 0 .STK-MED ONE 03/09 1810 DC .ROUTE Lidocaine HCl 0 .STK-MED ONE 03/09 1810 DC .ROUTE Departure Departure Time of Disposition 1805 Disposition DC Home or Self Care(routine) Clinical Impression Primary Impression: Acute frontal sinusitis Qualifiers: Recurrence: recurrent Qualified Code: J01.11 - Acute recurrent frontal sinusitis Condition STABLE Referrals Son FARRELL,Jake Duggan (Family) Follow up for new, worsening or persistant symptoms. It may take 2-3 days to notice much improvement so be sure to use conservative measures as discussed for symptoms. Patient Instructions DI for Sinusitis Additional Instructions *Start antibiotic and be sure to take as ordered for the FULL length of time even if you feel better. Sinus infections do not get better overnight. It may take 2-3 days to notice much improvement so be sure to use conservative measures as discussed for symptoms. * augmentin can cause GI side effects. Probiotics help prevent these symptoms. * pt requesting steroid injection. Aware of the risk associated with DM and therefore, I will not give it at this time. Encouraged to try antibiotic, flonase and conservative measures first and if still no improvement, can follow up with primary care to make the call about steroid injection w/ his diabetes. * Flonase ( a nasal steroid) 2 sprays each nostril daily to help with nasal congestion, sinus and ear pressure/inflammation * Lots of fluids * Sleep elevated * Humidifier/vaporizer * sinus rinses BID Discharge Counseling Counseled pt/family regarding diagnosis, medications/RX, home care, follow up needs Prescriptions Current Visit Scripts Amoxicillin/Potassium Clav (Augmentin 875-125 Tablet) 1 EACH PO BID #20 TAB start Wednesday Fluticasone Propionate (Flonase 50 Mcg Nasal [place]) 2 SPRAY NA DAILY #1 BOT at 1852
[2017-03-09] MEDS ORDERED: FLONASE 50 MCG16 GM (18:10)
[2017-03-09] MEDS ORDERED: AUGMENTIN 875-1 EACH PO (18:10)
[2017-03-09 18:26] VITALS: BP 111/64
== END 2017-03-09 18:26 | disposition home or self-care (01) ==
LOC: UTC 17:04
DX: J01.11 Acute recurrent frontal sinusitis (principal); E11.9 Type 2 diabetes mellitus without complications; Z79.4 Long term (current) use of insulin; F17.210 Nicotine dependence, cigarettes, uncomplicated